=== PATIENT | male | born 1935 | race Caucasian/White ===

== ENCOUNTER 2017-01-26 08:31 | Emergency (ER) | payer MEDICARE ==
[~2017-01-26] VITALS: Ht 170.1 cm; Wt 88.5 kg
--- NOTE | ~2017-01-26 | EKG ---
[place], [place] ELECTROCARDIOGRAM REPORT NAME: PRESTON TOLBERT UNIT #: [id number] ROOM: DOCTOR: ORVILLE CORNELL MD BIRTHDATE: [birth year] DOS: 01/26/2017 TIME: 0902 hours. FINDINGS: 1. Sinus bradycardia at 52. 2. First degree AV block. 3. Nonspecific interventricular conduction defect. 4. Nonspecific T-wave flattening. 5. Abnormal electrocardiogram. ORVILLE CORNELL MD CM:EKGRPT:ELECTROCARDIOGRAM REPORT [id number] ORVILLE CORNELL MD
[2017-01-26 09:41] LABS: BASO # 0.1 10*3/uL (0.0-0.1); BASO % 0.8 % (0.0-1.0); EOS # 0.3 10*3/uL (0.0-0.4); EOS % 2.7 % (1.0-4.0); HEMOGLOBIN 12.6 g/dl (14.0-18.0); LYMPH # 1.1 10*3/uL (1.3-4.4); LYMPH % 11.8 % (27.0-41.0); MEAN CELL VOLUME 90.5 fl (80.0-94.0); MEAN CORPUSCULAR HGB 28.5 pg (27.0-31.0); MEAN CORPUSCULAR HGB CONC 31.5 g/dl (33.0-37.0); MEAN PLATELET VOLUME 9.2 fl (9.6-12.3); MONO # 0.6 10*3/uL (0.1-1.0); MONO % 6.6 % (3.0-9.0); NEUT # 7.2 10*3/uL (2.3-7.9); NEUT % 77.8 % (47.0-73.0); PLATELET COUNT AUTOMATED 224 10*3/uL (130-400); RED BLOOD COUNT 4.42 10*6/uL (4.50-5.90); WHITE BLOOD COUNT 9.2 10*3/uL (4.8-10.8)
[2017-01-26 09:59] LABS: BUN 28 mg/dl (7-24); CARBON DIOXIDE 28 mmol/L (21-32); CHLORIDE 106 mmol/L (98-107); EST GLOM FILT AFRICAN AMERICAN 31 ml/min; GLUCOSE 116 mg/dL (65-99); POTASSIUM 4.4 mmol/L (3.5-5.1); SODIUM 143 mmol/L (136-145); TROPONIN I < 0.015 ng/ml (<0.045)
[2017-01-26] MEDS ORDERED: DELTASONE20 M1 PO (13:24)
== END 2017-01-26 14:20 | disposition left against medical advice (07) ==
LOC: ED 08:31
PROVIDERS: Emergency Medicine
DX: J44.1 Chronic obstructive pulmonary disease with (acute) exacerbation (principal)

== ENCOUNTER 2017-10-31 09:06 | Inpatient (IN) | payer OTHER ==
[2017-10-31] VITALS (7 sets, daily range): BP systolic 112–126; BP diastolic 46–70
[~2017-10-31] VITALS: Ht 170.2 cm; Wt 77.6 kg
--- NOTE | ~2017-10-31 | EKG ---
[place], [place] ELECTROCARDIOGRAM REPORT NAME: PRESTON TOLBERT UNIT #: [id number] ROOM: 403 DOCTOR: ANUSHKA GAN [facility] BIRTHDATE: [birth year] DOS: 10/31/2017 TRACING TIME: 932. CONCLUSION: 1. Sinus rhythm. 2. Second degree AV block, 2 to 1 is considered, and heart rate is only 44 and could be a source of arrhythmia including the intrinsic conduction. 3. Left axis. 4. Nonspecific ST changes. TERRI REVELES MD CM:EKGRPT:ELECTROCARDIOGRAM REPORT [id number] TERRI REVELES MD [facility]
--- NOTE | ~2017-10-31 | CON ---
[employer], [place] REPORT OF CONSULTATION NAME: PRESTON TOLBERT UNIT #: [id number] ROOM: 403 [facility] [birth year] DOS: 11/01/2017 CARDIOLOGY CONSULTATION HISTORY OF PRESENT ILLNESS: The patient came in with history of cough and some dyspnea. Denies for any syncope or presyncope and somewhat tiredness and fatigue. This is going on for the last 3 weeks and found to be in second-degree AV block Mobitz II with 2:1 with bradycardia and the patient on metoprolol, has been stopped more than 24 hours now. We will repeat the EKG and monitoring. If second-degree AV block still persist, consideration may be given for permanent pacemaker to optimize the heart rate and today is no further progression of the second-degree AV block, third degree AV block or complete heart block. The patient came to the Emergency Room and the patient had apparently abdominal aortic aneurysm repaired in the past. No history of heart attack. The patient has a chronic obstructive airway disease and history of hypertension and history of kidney cancer and dyslipidemia. The patient also has apparently thoracic aneurysm, but Anesthesia did not want to undertake the patient for surgery because of the increased multisystem disease and decompensation that is as per the patient. SOCIAL HISTORY: No alcohol use. No illicit drugs. History of smoking in the past and he quit smoking several years ago, i.e. 1994 last time he smoked. FAMILY HISTORY: Mother and father no significant family history. ALLERGIES: No known allergies. PHYSICAL EXAMINATION: VITAL SIGNS: Heart rate is about 50 now. GENERAL: Skin is warm, not diaphoretic. NECK: No jugular venous distension. Neck is supple. HEENT: The patient is hard of hearing. LUNGS: Decreased breath sounds. HEART: S1 and S2 regular. No gallop. ABDOMEN: Soft. SKIN: Warm and dry. LABORATORY DATA: Hemoglobin 12.5. WBC count is normal. Heart rate went down mid-yesterday is about 40s, now resolved and since we stopped the metoprolol, rate is about 50-60. We will do EKG and monitor followup. He still has a second-degree AV block Mobitz II, consideration should be given for pacemaker, otherwise conservative management and not to give the beta blocking agent and continue with , but if second-degree with Mobitz II, consider pacemaker to reduce the risk of further progression. IMPRESSION: Underlying second-degree AV with Mobitz II and make sure it is not drug related. PLAN: Continue to monitor the patient. [employer], [place] REPORT OF CONSULTATION NAME: PRESTON TOLBERT UNIT #: [id number] ROOM: [facility] DOCTOR: ANUSHKA GAN [facility] BIRTHDATE: [birth year] TERRI REVELES MD CM:CONSTR:REPORT OF CONSULTATION 0703 11/01/17 0941 interface JAMSHID BYRNES DO
--- NOTE | ~2017-10-31 | EKG ---
[place], [place] ELECTROCARDIOGRAM REPORT NAME: PRESTON TOLBERT UNIT #: [id number] ROOM: [facility] DOCTOR: ANUSHKA GAN [facility] BIRTHDATE: [birth year] DOS: 11/01/2017 TRACING TIME: 0700. CONCLUSION: 1. Sinus rhythm. 2. First degree AV block. 3. Nonspecific ST changes. TERRI REVELES MD CM:EKGRPT:ELECTROCARDIOGRAM REPORT [id number] TERRI REVELES MD [facility]
[~2017-10-31 09:06] MED LIST: DELTASONE20 M1 PO
[2017-10-31 09:40] LABS: BASO # 0.1 10*3/uL (0.0-0.1); BASO % 0.7 % (0.0-1.0); EOS # 0.2 10*3/uL (0.0-0.4); EOS % 2.3 % (1.0-4.0); HEMATOCRIT 39.7 % (42.0-52.0); HEMOGLOBIN 12.5 g/dl (14.0-18.0); LYMPH # 1.2 10*3/uL (1.3-4.4); LYMPH % 11.5 % (27.0-41.0); MEAN CELL VOLUME 89.8 fl (80.0-94.0); MEAN CORPUSCULAR HGB 28.3 pg (27.0-31.0); MEAN CORPUSCULAR HGB CONC 31.5 g/dl (33.0-37.0); MEAN PLATELET VOLUME 9.2 fl (9.6-12.3); MONO # 0.5 10*3/uL (0.1-1.0); MONO % 4.9 % (3.0-9.0); NEUT # 8.1 10*3/uL (2.3-7.9); NEUT % 80.3 % (47.0-73.0); PLATELET COUNT AUTOMATED 235 10*3/uL (130-400); RED BLOOD COUNT 4.42 10*6/uL (4.50-5.90); RED CELL DISTRI WIDTH 14.3 % (0-14.5); WHITE BLOOD COUNT 10.1 10*3/uL (4.8-10.8)
[2017-10-31 09:55] LABS: CREATININE 3.12 mg/dL (0.70-1.30); POTASSIUM 3.2 mmol/L (3.5-5.1); TROPONIN I 0.03 ng/ml (<0.045)
[2017-10-31 10:01] LABS: THYROID STIM HORMONE (HS) 9.19 uIU/ml (0.358-4.75)
[2017-10-31] MEDS ORDERED: LOPRESSOR50 M1 PO (12:43)
[2017-10-31] MEDS ORDERED: ZESTRIL,PRINIVIL5 MG PO (12:45)
[2017-10-31] MEDS ORDERED: PROCARDIA XL60 MG PO (12:46)
[2017-10-31] MEDS ORDERED: PROSCAR5 M1 PO (12:49)
[2017-10-31] MEDS ORDERED: LIPITOR40 MG PO (12:50)
[2017-10-31] MEDS ORDERED: OMEPRAZOLE20 M2 PO (12:53)
[2017-11-01] VITALS: BP 142/63
[2017-11-01 07:00] LABS: BASO % 0.6 % (0.0-1.0); EOS # 0.2 10*3/uL (0.0-0.4); EOS % 2.8 % (1.0-4.0); HEMATOCRIT 33.7 % (42.0-52.0); LYMPH # 1.3 10*3/uL (1.3-4.4); MEAN CELL VOLUME 89.4 fl (80.0-94.0); MEAN CORPUSCULAR HGB 29.2 pg (27.0-31.0); MEAN CORPUSCULAR HGB CONC 32.6 g/dl (33.0-37.0); MEAN PLATELET VOLUME 9.7 fl (9.6-12.3); MONO # 0.6 10*3/uL (0.1-1.0); NEUT % 70.3 % (47.0-73.0); PLATELET COUNT AUTOMATED 165 10*3/uL (130-400); RED BLOOD COUNT 3.77 10*6/uL (4.50-5.90); RED CELL DISTRI WIDTH 14.5 % (0-14.5); WHITE BLOOD COUNT 7.1 10*3/uL (4.8-10.8)
[2017-11-01 07:34] LABS: ALBUMIN 2.7 gm/dl (3.1-4.5); CREATININE 2.91 mg/dL (0.70-1.30); FREE T4 1.21 ng/dl (0.76-1.46); PHOSPHOROUS 3.7 mg/dL (2.5-4.9); POTASSIUM 3.5 mmol/L (3.5-5.1); TOTAL PROTEIN 5.9 gm/dL (6.4-8.2)
[2017-11-01 07:39] LABS: ACT PARTIAL THROMBO TIME 27.5 SECONDS (20.8-31.5)
[2017-11-01 07:57] LABS: VITAMIN D, 25-HYDROXY 14.9 ng/mL (30-100)
[2017-11-01 08:00] VITALS: BP 155/66
[2017-11-01 12:00] VITALS: BP 173/83
[2017-11-01] MEDS ORDERED: ZESTORETIC 20-1 EACH PO (12:07)
[2017-11-01] MEDS ORDERED: SPIRIVA18 MCG PO (12:08)
[2017-11-01] MEDS ORDERED: Ventolin 02.5 MG/3 M INH (12:09)
[2017-11-01] MEDS ORDERED: PROVENTIL HFA6.7 GM INH (12:11)
[2017-11-01] MEDS ORDERED: OCUVITE WITH L1 EACH PO (12:13)
[2017-11-01] MEDS ORDERED: ALLERGY RELIE15.8 ML NAS (12:15)
[2017-11-01] MEDS ORDERED: NIFEDIPINE ER30 M1 PO (13:46)
[2017-11-01] MEDS ORDERED: VITAMIN D31000 UNI1 PO (13:46)
[2017-11-01] MEDS ORDERED: TESSALON PERLE100 MG PO (14:41)
== END 2017-11-01 14:55 | disposition home or self-care (01) | DRG 308 ==
LOC: ED 09:06 → EDHOLD 11:31 → 4E 11:31
PROVIDERS: Emergency Medicine; Student in an Organized Health Care Education/Training Program
DX: I44.1 Atrioventricular block, second degree (principal); N17.0 Acute kidney failure with tubular necrosis; N18.4 Chronic kidney disease, stage 4 (severe); E87.6 Hypokalemia; J44.9 Chronic obstructive pulmonary disease, unspecified; R73.9 Hyperglycemia, unspecified; E78.5 Hyperlipidemia, unspecified; I12.9 Hypertensive chronic kidney disease with stage 1 through stage 4 chronic kidney disease, or unspecified chronic kidney disease; I71.6 Thoracoabdominal aortic aneurysm, without rupture; D64.9 Anemia, unspecified; D72.9 Disorder of white blood cells, unspecified; D72.810 Lymphocytopenia; E55.9 Vitamin D deficiency, unspecified; Z87.891 Personal history of nicotine dependence; Z85.528 Personal history of other malignant neoplasm of kidney; Z90.49 Acquired absence of other specified parts of digestive tract; Z98.49 Cataract extraction status, unspecified eye; Z90.5 Acquired absence of kidney; Z79.899 Other long term (current) drug therapy

== ENCOUNTER 2018-01-20 16:04 | Emergency (ER) | payer OTHER ==
[~2018-01-20] VITALS: Ht 170.1 cm; Wt 77.1 kg
--- NOTE | ~2018-01-20 | EKG ---
[place], [place] ELECTROCARDIOGRAM REPORT NAME: PRESTON TOLBERT UNIT #: [id number] ROOM: DOCTOR: ANUSHKA GAN [facility] BIRTHDATE: [birth year] DOS: 01/20/2018 TIME: 1618 hours. CONCLUSION: 1. Sinus rhythm. 2. First degree AV block. 3. Nonspecific ST changes. TERRI REVELES MD CM:EKGRPT:ELECTROCARDIOGRAM REPORT 0750 [id number] TERRI REVELES MD [facility]
[2018-01-20 16:05] VITALS: BP 162/89
[2018-01-20 16:45] LABS: BASO # 0.1 10*3/uL (0.0-0.1); BASO % 0.9 % (0.0-1.0); EOS # 0.2 10*3/uL (0.0-0.4); EOS % 2.9 % (1.0-4.0); HEMATOCRIT 35.1 % (42.0-52.0); LYMPH # 0.9 10*3/uL (1.3-4.4); LYMPH % 14.9 % (27.0-41.0); MEAN CELL VOLUME 93.9 fl (80.0-94.0); MEAN CORPUSCULAR HGB 29.4 pg (27.0-31.0); MEAN CORPUSCULAR HGB CONC 31.3 g/dl (33.0-37.0); MEAN PLATELET VOLUME 9.6 fl (9.6-12.3); MONO # 0.4 10*3/uL (0.1-1.0); MONO % 6.6 % (3.0-9.0); NEUT # 4.3 10*3/uL (2.3-7.9); NEUT % 74.5 % (47.0-73.0); PLATELET COUNT AUTOMATED 179 10*3/uL (130-400); RED BLOOD COUNT 3.74 10*6/uL (4.50-5.90); RED CELL DISTRI WIDTH 14.4 % (0-14.5); WHITE BLOOD COUNT 5.8 10*3/uL (4.8-10.8)
[2018-01-20 17:00] LABS: CREATININE 3.03 mg/dL (0.70-1.30); POTASSIUM 5.5 mmol/L (3.5-5.1)
[2018-01-20 18:16] VITALS: BP 151/76
== END 2018-01-20 18:15 | disposition home or self-care (01) ==
LOC: ED 16:04 → EDHOLD 17:13 → 5E 17:28 → EDHOLD 17:28 → ED 18:15
PROVIDERS: Emergency Medicine
DX: E87.5 Hyperkalemia (principal); I12.9 Hypertensive chronic kidney disease with stage 1 through stage 4 chronic kidney disease, or unspecified chronic kidney disease; N18.4 Chronic kidney disease, stage 4 (severe); E78.5 Hyperlipidemia, unspecified; J44.9 Chronic obstructive pulmonary disease, unspecified; Z90.49 Acquired absence of other specified parts of digestive tract; Z98.890 Other specified postprocedural states; Z87.891 Personal history of nicotine dependence; Z79.899 Other long term (current) drug therapy

== ENCOUNTER → 2018-01-20 | Outpatient (CLI) | payer OTHER ==
[~2018-01-20] MED LIST changes: +ALLERGY RELIE15.8 ML NAS; +LIPITOR40 MG PO; +LOPRESSOR50 M1 PO; +NIFEDIPINE ER30 M1 PO; +OCUVITE WITH L1 EACH PO; +OMEPRAZOLE20 M2 PO; +PROCARDIA XL60 MG PO; +PROSCAR5 M1 PO; +PROVENTIL HFA6.7 GM INH; +SPIRIVA18 MCG PO; +TESSALON PERLE100 MG PO; +VITAMIN D31000 UNI1 PO; +Ventolin 02.5 MG/3 M INH; +ZESTORETIC 20-1 EACH PO; +ZESTRIL,PRINIVIL5 MG PO
[2018-01-20 14:23] LABS: ALBUMIN 3.3 gm/dl (3.1-4.5); CREATININE 3.03 mg/dL (0.70-1.30); POTASSIUM 5.8 mmol/L (3.5-5.1); TOTAL PROTEIN 7.3 gm/dL (6.4-8.2)
== END | disposition home or self-care (01) ==
LOC: LAB 13:34
PROVIDERS: Nurse Practitioner Family
DX: E87.5 Hyperkalemia (principal)

== ENCOUNTER → 2018-01-23 | Outpatient (CLI) | payer OTHER ==
[2018-01-23 10:48] LABS: CREATININE 2.91 mg/dL (0.70-1.30); POTASSIUM 5.9 mmol/L (3.5-5.1)
== END | disposition home or self-care (01) ==
LOC: LAB 09:28
PROVIDERS: Emergency Medicine
DX: E87.5 Hyperkalemia (principal)

== ENCOUNTER 2018-01-26 22:11 | Emergency (ER) | payer OTHER ==
[~2018-01-26] VITALS: Ht 167.6 cm; Wt 86.2 kg
[2018-01-26 23:18] LABS: CREATININE 3.06 mg/dL (0.70-1.30); POTASSIUM 5.1 mmol/L (3.5-5.1)
== END 2018-01-27 00:25 | disposition home or self-care (01) ==
LOC: ED 22:11
PROVIDERS: Emergency Medicine Emergency Medical Services
DX: E87.5 Hyperkalemia (principal); I12.9 Hypertensive chronic kidney disease with stage 1 through stage 4 chronic kidney disease, or unspecified chronic kidney disease; N18.4 Chronic kidney disease, stage 4 (severe); E78.5 Hyperlipidemia, unspecified; Z85.528 Personal history of other malignant neoplasm of kidney; Z98.890 Other specified postprocedural states; Z90.49 Acquired absence of other specified parts of digestive tract; Z87.891 Personal history of nicotine dependence; Z79.899 Other long term (current) drug therapy

== ENCOUNTER 2018-02-28 07:14 | Inpatient (IN) | payer OTHER ==
[~2018-02-28] VITALS: Ht 170.1 cm; Wt 81.8 kg
[2018-02-28 07:14] VITALS: BP 151/73
[2018-02-28 07:59] LABS: BASO # 0.1 10*3/uL (0.0-0.1); BASO % 0.8 % (0.0-1.0); EOS # 0.2 10*3/uL (0.0-0.4); EOS % 3.5 % (1.0-4.0); HEMATOCRIT 33.3 % (42.0-52.0); HEMOGLOBIN 10.6 g/dl (14.0-18.0); LYMPH % 15.7 % (27.0-41.0); MEAN CELL VOLUME 93.3 fl (80.0-94.0); MEAN CORPUSCULAR HGB 29.7 pg (27.0-31.0); MEAN CORPUSCULAR HGB CONC 31.8 g/dl (33.0-37.0); MEAN PLATELET VOLUME 9.2 fl (9.6-12.3); MONO # 0.4 10*3/uL (0.1-1.0); MONO % 6.6 % (3.0-9.0); NEUT # 4.9 10*3/uL (2.3-7.9); NEUT % 73.2 % (47.0-73.0); PLATELET COUNT AUTOMATED 221 10*3/uL (130-400); RED BLOOD COUNT 3.57 10*6/uL (4.50-5.90); RED CELL DISTRI WIDTH 13.6 % (0-14.5); WHITE BLOOD COUNT 6.6 10*3/uL (4.8-10.8)
[2018-02-28 08:08] LABS: ACT PARTIAL THROMBO TIME 27.2 SECONDS (20.8-31.5)
[2018-02-28 08:16] LABS: ALBUMIN 3.2 gm/dl (3.1-4.5); CREATININE 2.72 mg/dL (0.70-1.30); POTASSIUM 4.1 mmol/L (3.5-5.1); TOTAL PROTEIN 7.1 gm/dL (6.4-8.2); TROPONIN I 0.02 ng/ml (<0.045)
[2018-02-28 08:57] VITALS: BP 138/70
[2018-02-28 10:20] VITALS: BP 164/80
[2018-02-28] MEDS ORDERED: FINASTERIDE5 M1 PO (12:33)
[2018-02-28] MEDS ORDERED: NIFEDIPINE ER60 M1 PO (13:52)
[2018-02-28 16:00] VITALS: BP 159/86
[2018-02-28 20:00] VITALS: BP 152/71
[2018-03-01] VITALS: BP 148/72
[2018-03-01 06:02] LABS: CREATININE 2.97 mg/dL (0.70-1.30); PHOSPHOROUS 3.7 mg/dL (2.5-4.9); POTASSIUM 4.3 mmol/L (3.5-5.1); TOTAL PROTEIN 6.8 gm/dL (6.4-8.2)
[2018-03-01 06:06] LABS: FREE T4 1.14 ng/dl (0.76-1.46); THYROID STIM HORMONE (HS) 2.1 uIU/ml (0.358-4.75)
[2018-03-01 06:13] LABS: HEMATOCRIT 31.4 % (42.0-52.0); HEMOGLOBIN 9.9 g/dl (14.0-18.0); MEAN CELL VOLUME 92.9 fl (80.0-94.0); MEAN CORPUSCULAR HGB 29.3 pg (27.0-31.0); MEAN CORPUSCULAR HGB CONC 31.5 g/dl (33.0-37.0); MEAN PLATELET VOLUME 9.5 fl (9.6-12.3); PLATELET COUNT AUTOMATED 216 10*3/uL (130-400); RED BLOOD COUNT 3.38 10*6/uL (4.50-5.90); RED CELL DISTRI WIDTH 13.6 % (0-14.5); WHITE BLOOD COUNT 4.1 10*3/uL (4.8-10.8)
[2018-03-01 07:05] LABS: OVALOCYTES FEW; PLATELET SUFFICIENCY NORMAL (NORMAL); POLYCHROMASIA SLIGHT; TOTAL CELLS COUNTED 100 #CELLS
[2018-03-01 07:12] LABS: VITAMIN D, 25-HYDROXY 26.4 ng/mL (30-100)
[2018-03-01 08:00] VITALS: BP 150/72
[2018-03-01 12:00] VITALS: BP 150/70
[2018-03-01 16:00] VITALS: BP 151/77
[2018-03-01 20:00] VITALS: BP 145/78
[2018-03-02 00:15] VITALS: BP 125/53
[2018-03-02 06:06] LABS: RETICULOCYTE % 1.61 % (0.50-2.50)
[2018-03-02 06:27] LABS: ALBUMIN 2.9 gm/dl (3.1-4.5); CREATININE 3.3 mg/dL (0.70-1.30); PHOSPHOROUS 4.9 mg/dL (2.5-4.9); POTASSIUM 4.5 mmol/L (3.5-5.1)
[2018-03-02 08:00] VITALS: BP 119/69
[2018-03-02 08:24] LABS: FERRITIN 399.1 ng/mL (22.0-322.0)
[2018-03-02 12:00] VITALS: BP 153/65
[2018-03-02 13:59] LABS: BILIRUBIN NEGATIVE (NEGATIVE); BLOOD TRACE-LYSED (NEGATIVE); CLARITY SL CLOUDY (CLEAR); COLOR YELLOW (YELLOW); GLUCOSE NEGATIVE (NEGATIVE); KETONE NEGATIVE (NEGATIVE); LEUKO ESTERASE NEGATIVE (NEGATIVE); NITRITE NEGATIVE (NEGATIVE); SPECIFIC GRAVITY >= 1.030 (1.005-1.030); UROBILINOGEN 0.2 E.U./dl (0.2-1.0)
[2018-03-02 14:08] LABS: BACTERIA 3+; HYALINE CAST 0-2
[2018-03-02 14:09] LABS: MUCOUS TRACE
[2018-03-02 16:00] VITALS: BP 150/79
[2018-03-02 20:00] VITALS: BP 151/79
[2018-03-03] VITALS: BP 125/46
[2018-03-03 07:00] LABS: POTASSIUM 4.1 mmol/L (3.5-5.1)
[2018-03-03 07:02] LABS: CREATININE 3.18 mg/dL (0.70-1.30); PHOSPHOROUS 4.2 mg/dL (2.5-4.9)
[2018-03-03 08:00] VITALS: BP 137/72
[2018-03-03 12:00] VITALS: BP 146/80
[2018-03-03] MEDS ORDERED: PREDNISONE10 MG PO (14:02)
[2018-03-03] MEDS ORDERED: ZITHROMAX500 MG PO (14:02)
== END 2018-03-03 15:21 | disposition home or self-care (01) | DRG 193 ==
LOC: ED 07:14 → 4E 09:52
PROVIDERS: Emergency Medicine; Internal Medicine; Registered Nurse
DX: J18.9 Pneumonia, unspecified organism (principal); J96.01 Acute respiratory failure with hypoxia; N18.4 Chronic kidney disease, stage 4 (severe); J44.1 Chronic obstructive pulmonary disease with (acute) exacerbation; J44.0 Chronic obstructive pulmonary disease with (acute) lower respiratory infection; E78.5 Hyperlipidemia, unspecified; D64.9 Anemia, unspecified; D72.810 Lymphocytopenia; N40.0 Benign prostatic hyperplasia without lower urinary tract symptoms; E87.8 Other disorders of electrolyte and fluid balance, not elsewhere classified; I12.9 Hypertensive chronic kidney disease with stage 1 through stage 4 chronic kidney disease, or unspecified chronic kidney disease; Z90.5 Acquired absence of kidney; Z79.899 Other long term (current) drug therapy; Z85.528 Personal history of other malignant neoplasm of kidney; Z90.49 Acquired absence of other specified parts of digestive tract; Z98.49 Cataract extraction status, unspecified eye; Z87.891 Personal history of nicotine dependence; Z82.49 Family history of ischemic heart disease and other diseases of the circulatory system; Z80.9 Family history of malignant neoplasm, unspecified

== ENCOUNTER 2018-03-13 15:43 | Inpatient (IN) | payer OTHER ==
[~2018-03-13] VITALS: Ht 170.1 cm; Wt 77.5 kg
--- NOTE | ~2018-03-13 | ST ---
[place], [place] EXERCISE STRESS TEST REPORT NAME: PRESTON TOLBERT UNIT #: [id number] ROOM: 523 DOCTOR: ANUSHKA GAN [facility] BIRTHDATE: [birth year] DOS: 03/16/2018 LEXISCAN WITH CARDIOLITE The patient received Lexiscan 0.4 mg over 10 seconds. Heart rate is 90. No ischemic changes in the EKG. The patient has paroxysmal atrial fibrillation with rapid ventricular response and the periodic sinus rhythm. Isotope was injected and no complication noted and Lexiscan 0.4 mg injected prior to the Cardiolite injection. The patient tolerated the procedure well. No complication noted. Myocardial perfusion scan to follow. TERRI REVELES MD CM:STRESS:EXERCISE STRESS TEST REPORT 0717 0726 TERRI REVELES MD [facility]
--- NOTE | ~2018-03-13 | CON ---
[place], [place] REPORT OF CONSULTATION NAME: PRESTON TOLBERT UNIT #: [id number] ROOM: 523 DOCTOR: ANUSHKA GAN [facility] BIRTHDATE: [birth year] DOS: 03/15/2018 CARDIOLOGY CONSULTATION The patient is an 82-year-old male who came in with history of chronic respiratory failure and non-ST elevation myocardial infarction cannot be excluded with troponins elevated; however, the patient is also in renal failure and creatinine is more than 4 and I have been talking to him for the last several admissions to have the dialysis started, but refused and we are still talking at this time also. 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 The patient had history of partial nephrectomy for renal carcinoma. The patient has an abdominal aortic aneurysm repaired. Mechanical Manufacturing Technician has been following the patient. The patient apparently has progressive increasing peripheral edema and peripheral neuropathy. No history of alcohol intake or illicit drugs. TERRI REVELES MD CM:CONSTR:REPORT OF CONSULTATION 1239 03/27/18 0828 interface
[~2018-03-13 15:43] MED LIST changes: +FINASTERIDE5 M1 PO; +NIFEDIPINE ER60 M1 PO; +PREDNISONE10 MG PO; +ZITHROMAX500 MG PO
[2018-03-13 15:45] VITALS: BP 146/69
[2018-03-13 16:13] LABS: HEMATOCRIT 29.6 % (42.0-52.0); HEMOGLOBIN 9.6 g/dl (14.0-18.0); MEAN CELL VOLUME 92.5 fl (80.0-94.0); MEAN CORPUSCULAR HGB CONC 32.4 g/dl (33.0-37.0); MEAN PLATELET VOLUME 10.2 fl (9.6-12.3); PLATELET COUNT AUTOMATED 211 10*3/uL (130-400); RED CELL DISTRI WIDTH 14.4 % (0-14.5); WHITE BLOOD COUNT 14.7 10*3/uL (4.8-10.8)
[2018-03-13 16:22] LABS: ACT PARTIAL THROMBO TIME 22.8 SECONDS (20.8-31.5)
[2018-03-13 16:28] LABS: ALBUMIN 3.5 gm/dl (3.1-4.5); CREATININE 4.13 mg/dL (0.70-1.30); POTASSIUM 4.3 mmol/L (3.5-5.1); TOTAL PROTEIN 6.5 gm/dL (6.4-8.2)
[2018-03-13 16:37] LABS: TROPONIN I 0.174 ng/ml (<0.045)
[2018-03-13 16:39] LABS: BURR CELLS FEW; PLATELET SUFFICIENCY NORMAL (NORMAL); TOTAL CELLS COUNTED 100 #CELLS
[2018-03-13 17:05] VITALS: BP 135/59
[2018-03-13 20:00] VITALS: BP 135/60
[2018-03-14] VITALS: BP 119/82
[2018-03-14 05:19] LABS: BILIRUBIN NEGATIVE (NEGATIVE); BLOOD TRACE-INTACT (NEGATIVE); CLARITY CLEAR (CLEAR); COLOR YELLOW (YELLOW); GLUCOSE NEGATIVE (NEGATIVE); KETONE NEGATIVE (NEGATIVE); LEUKO ESTERASE NEGATIVE (NEGATIVE); NITRITE NEGATIVE (NEGATIVE); UROBILINOGEN 0.2 E.U./dl (0.2-1.0)
[2018-03-14 05:30] LABS: URINE CREATININE RANDOM 75.5 mg/dL
[2018-03-14 06:39] LABS: HEMATOCRIT 26.4 % (42.0-52.0); HEMOGLOBIN 8.4 g/dl (14.0-18.0); MEAN CELL VOLUME 92.6 fl (80.0-94.0); MEAN CORPUSCULAR HGB 29.5 pg (27.0-31.0); MEAN CORPUSCULAR HGB CONC 31.8 g/dl (33.0-37.0); MEAN PLATELET VOLUME 10.3 fl (9.6-12.3); PLATELET COUNT AUTOMATED 162 10*3/uL (130-400); RED BLOOD COUNT 2.85 10*6/uL (4.50-5.90); RED CELL DISTRI WIDTH 14.3 % (0-14.5); WHITE BLOOD COUNT 9.2 10*3/uL (4.8-10.8)
[2018-03-14 07:03] LABS: TOTAL CELLS COUNTED 100 #CELLS
[2018-03-14 07:04] LABS: ACANTHOCYTES FEW; BURR CELLS FEW; PLATELET SUFFICIENCY NORMAL (NORMAL); POLYCHROMASIA SLIGHT
[2018-03-14 07:07] LABS: ALBUMIN 2.9 gm/dl (3.1-4.5); CREATININE 4.04 mg/dL (0.70-1.30); PHOSPHOROUS 3.9 mg/dL (2.5-4.9); TOTAL PROTEIN 5.7 gm/dL (6.4-8.2)
[2018-03-14 08:00] VITALS: BP 146/81
[2018-03-14 12:00] VITALS: BP 156/72
[2018-03-14 16:00] VITALS: BP 132/68
[2018-03-14 20:00] VITALS: BP 143/74
[2018-03-15] VITALS: BP 139/63
[2018-03-15 07:16] LABS: ALBUMIN 2.9 gm/dl (3.1-4.5); CREATININE 4.11 mg/dL (0.70-1.30)
[2018-03-15 07:49] LABS: EOS # 0.3 10*3/uL (0.0-0.4); EOS % 3.1 % (1.0-4.0); HEMATOCRIT 26.5 % (42.0-52.0); HEMOGLOBIN 8.4 g/dl (14.0-18.0); LYMPH # 0.6 10*3/uL (1.3-4.4); MEAN CELL VOLUME 93.3 fl (80.0-94.0); MEAN CORPUSCULAR HGB 29.6 pg (27.0-31.0); MEAN CORPUSCULAR HGB CONC 31.7 g/dl (33.0-37.0); MEAN PLATELET VOLUME 10.5 fl (9.6-12.3); MONO # 0.6 10*3/uL (0.1-1.0); MONO % 5.6 % (3.0-9.0); NEUT # 8.7 10*3/uL (2.3-7.9); NEUT % 84.9 % (47.0-73.0); PLATELET COUNT AUTOMATED 172 10*3/uL (130-400); RED BLOOD COUNT 2.84 10*6/uL (4.50-5.90); RED CELL DISTRI WIDTH 14.6 % (0-14.5); WHITE BLOOD COUNT 10.3 10*3/uL (4.8-10.8)
[2018-03-15 08:00] VITALS: BP 146/70
[2018-03-15 12:00] VITALS: BP 150/72
[2018-03-15 16:00] VITALS: BP 153/79
[2018-03-15 20:00] VITALS: BP 150/81
[2018-03-16] VITALS: BP 143/75
[2018-03-16 08:00] VITALS: BP 144/74
[2018-03-16 10:01] LABS: CREATININE 3.94 mg/dL (0.70-1.30); POTASSIUM 3.9 mmol/L (3.5-5.1)
[2018-03-16 12:00] VITALS: BP 140/69
[2018-03-16] MEDS ORDERED: BUMEX2.5 MG/10 IV (12:31)
[2018-03-16] MEDS ORDERED: ROPINIROLE HY0.25 MG PO (12:31)
[2018-03-16] MEDS ORDERED: CALCIUM ACETAT667 MG PO (12:31)
[2018-03-16] MEDS ORDERED: DILTIAZEM 24HR120 MG PO (12:31)
[2018-03-16] MEDS ORDERED: VITAMIN D-32000 UNIT PO (12:31)
[2018-03-16 16:00] VITALS: BP 134/67
[2018-03-16 20:00] VITALS: BP 155/73
[2018-03-17] VITALS: BP 142/62
[2018-03-17 07:11] LABS: BASO % 0.1 % (0.0-1.0); EOS # 0.5 10*3/uL (0.0-0.4); EOS % 4.9 % (1.0-4.0); HEMATOCRIT 25.2 % (42.0-52.0); HEMOGLOBIN 8.1 g/dl (14.0-18.0); LYMPH # 0.4 10*3/uL (1.3-4.4); LYMPH % 4.1 % (27.0-41.0); MEAN CORPUSCULAR HGB 30.2 pg (27.0-31.0); MEAN CORPUSCULAR HGB CONC 32.1 g/dl (33.0-37.0); MEAN PLATELET VOLUME 10.7 fl (9.6-12.3); MONO # 0.6 10*3/uL (0.1-1.0); MONO % 5.5 % (3.0-9.0); NEUT # 9.2 10*3/uL (2.3-7.9); NEUT % 84.9 % (47.0-73.0); PLATELET COUNT AUTOMATED 129 10*3/uL (130-400); RED BLOOD COUNT 2.68 10*6/uL (4.50-5.90); RED CELL DISTRI WIDTH 14.8 % (0-14.5); WHITE BLOOD COUNT 10.9 10*3/uL (4.8-10.8)
[2018-03-17 07:55] LABS: ALBUMIN 2.6 gm/dl (3.1-4.5); CREATININE 4.16 mg/dL (0.70-1.30); PHOSPHOROUS 4.9 mg/dL (2.5-4.9); POTASSIUM 3.7 mmol/L (3.5-5.1)
[2018-03-17 08:00] VITALS: BP 134/54
== END 2018-03-17 11:40 | disposition short-term general hospital (02) | DRG 871 ==
LOC: ED 15:43 → 5E 16:23 → EDHOLD 16:23 → 5E 16:44
PROVIDERS: Emergency Medicine; Internal Medicine; Internal Medicine Nephrology; Registered Nurse
PROC: 4A02XM4 Measurement of Cardiac Total Activity, External Approach (ICD-10-PCS; principal; 2018-03-16)
DX: A41.9 Sepsis, unspecified organism (principal); I21.4 Non-ST elevation (NSTEMI) myocardial infarction; J96.21 Acute and chronic respiratory failure with hypoxia; E43 Unspecified severe protein-calorie malnutrition; J18.9 Pneumonia, unspecified organism; D68.59 Other primary thrombophilia; E83.39 Other disorders of phosphorus metabolism; I48.0 Paroxysmal atrial fibrillation; D69.6 Thrombocytopenia, unspecified; I48.2 Chronic atrial fibrillation; N18.4 Chronic kidney disease, stage 4 (severe); N17.9 Acute kidney failure, unspecified; J44.0 Chronic obstructive pulmonary disease with (acute) lower respiratory infection; D64.9 Anemia, unspecified; I71.4 Abdominal aortic aneurysm, without rupture; R94.39 Abnormal result of other cardiovascular function study; H91.90 Unspecified hearing loss, unspecified ear; I71.6 Thoracoabdominal aortic aneurysm, without rupture; N40.0 Benign prostatic hyperplasia without lower urinary tract symptoms; E78.5 Hyperlipidemia, unspecified; I12.9 Hypertensive chronic kidney disease with stage 1 through stage 4 chronic kidney disease, or unspecified chronic kidney disease; Z99.81 Dependence on supplemental oxygen; Z79.899 Other long term (current) drug therapy; Z85.528 Personal history of other malignant neoplasm of kidney; Z90.49 Acquired absence of other specified parts of digestive tract; Z98.49 Cataract extraction status, unspecified eye; Z87.891 Personal history of nicotine dependence; Z82.49 Family history of ischemic heart disease and other diseases of the circulatory system; Z80.9 Family history of malignant neoplasm, unspecified; Z87.01 Personal history of pneumonia (recurrent); Z68.29 Body mass index [BMI] 29.0-29.9, adult

== ENCOUNTER → 2018-05-08 | Outpatient (CLI) | payer OTHER ==
[~2018-05-08] MED LIST changes: +BUMEX2.5 MG/10 IV; +CALCIUM ACETAT667 MG PO; +DILTIAZEM 24HR120 MG PO; +ROPINIROLE HY0.25 MG PO; +VITAMIN D-32000 UNIT PO
== END | disposition home or self-care (01) ==
LOC: US 15:28
DX: I72.1 Aneurysm of artery of upper extremity (principal)

== ENCOUNTER 2018-07-27 13:31 | Inpatient (IN) | payer OTHER ==
[~2018-07-27] VITALS: Ht 170.1 cm; Wt 74.9 kg
--- NOTE | ~2018-07-27 | EKG ---
[place], [place] ELECTROCARDIOGRAM REPORT NAME: PRESTON TOLBERT UNIT #: [id number] ROOM: 415 DOCTOR: SHASHI DRAFT REPORT BIRTHDATE: [birth year] [facility] Test Date: 2018-07-27 Test Time: 13:52:08 Pat Name: PRESTON TOLBERT Department: Room: [facility] Gender: M Crt: Robina Reardon : 1935 Requested By: BALJINDER AMBROSIO Order Number: [id number] Reading MD: Koko Bronson MD Measurements Intervals Gilman Rate: 63 P: VA: QRS: 3 QRSD: 108 T: 22 QT: 484 QTc: 496 Interpretive Statements Atrial fibrillation Posterior infarct, old Baseline wander in lead(s) II,III,aVL,aVF Electronically Signed On 07-28-2018 12:10:37 PDT by Koko Bronson MD CM:EKGRPT:ELECTROCARDIOGRAM REPORT [id number] 1210 BALJINDER STRAUSS DRAFT REPORT BALJINDER AMBROSIO DO
[2018-07-27 13:32] VITALS: BP 166/75
[2018-07-27 14:19] LABS: BASO # 0.1 10*3/uL (0.0-0.1); BASO % 0.7 % (0.0-1.0); EOS # 0.2 10*3/uL (0.0-0.4); EOS % 2.5 % (1.0-4.0); HEMATOCRIT 32.9 % (42.0-52.0); HEMOGLOBIN 10.3 g/dl (14.0-18.0); LYMPH # 0.8 10*3/uL (1.3-4.4); LYMPH % 11.2 % (27.0-41.0); MEAN CELL VOLUME 97.6 fl (80.0-94.0); MEAN CORPUSCULAR HGB 30.6 pg (27.0-31.0); MEAN CORPUSCULAR HGB CONC 31.3 g/dl (33.0-37.0); MEAN PLATELET VOLUME 9.9 fl (9.6-12.3); MONO # 0.5 10*3/uL (0.1-1.0); MONO % 7.5 % (3.0-9.0); NEUT # 5.1 10*3/uL (2.3-7.9); NEUT % 76.8 % (47.0-73.0); PLATELET COUNT AUTOMATED 161 10*3/uL (130-400); RED BLOOD COUNT 3.37 10*6/uL (4.50-5.90); RED CELL DISTRI WIDTH 13.9 % (0-14.5); WHITE BLOOD COUNT 6.7 10*3/uL (4.8-10.8)
[2018-07-27 14:21] LABS: ACT PARTIAL THROMBO TIME 25.5 SECONDS (20.8-31.5); INTERNATIONAL NORM RATIO 1.1 (2.0-3.5)
[2018-07-27 14:30] LABS: ALBUMIN 3.1 gm/dl (3.1-4.5); CREATININE 2.64 mg/dL (0.70-1.30); POTASSIUM 3.7 mmol/L (3.5-5.1); TOTAL PROTEIN 6.7 gm/dL (6.4-8.2); TROPONIN I 0.036 ng/ml (<0.045)
[2018-07-27] MEDS ORDERED: ASPIRIN ADULT L81 MG PO (15:52)
[2018-07-27] MEDS ORDERED: RENO CAPS SOFTGE1 MG PO (15:55)
[2018-07-27] MEDS ORDERED: DULCOLAX5 M1 PO (15:56)
[2018-07-27] MEDS ORDERED: BUMETANIDE1 MG PO (15:57)
[2018-07-27] MEDS ORDERED: PLAVIX75 M1 PO (15:58)
[2018-07-27] MEDS ORDERED: COREG6.25 MG PO (15:58)
[2018-07-27] MEDS ORDERED: FERROUS SULFAT324 M2 PO (15:59)
[2018-07-27] MEDS ORDERED: PEPCID20 MG PO (15:59)
[2018-07-27] MEDS ORDERED: Ipratropium Brom3 ML INH (16:01)
[2018-07-27] MEDS ORDERED: ONDANSETRON4 MG SL (16:02)
[2018-07-27] MEDS ORDERED: Transderm Nitr0.6 MG TD (16:02)
[2018-07-27] MEDS ORDERED: PANTOPRAZOLE SO20 MG PO (16:03)
[2018-07-27] MEDS ORDERED: LYRICA50 M1 PO (16:03)
[2018-07-27] MEDS ORDERED: RENVELA800 MG PO (16:04)
[2018-07-27] MEDS ORDERED: TRAMADOL HCL50 MG PO (16:05)
[2018-07-27 16:20] VITALS: BP 168/72
[2018-07-27 20:00] VITALS: BP 159/74
[2018-07-28] VITALS: BP 104/50
[2018-07-28 06:01] LABS: HEMATOCRIT 31.6 % (42.0-52.0); HEMOGLOBIN 9.9 g/dl (14.0-18.0); MEAN CELL VOLUME 96.3 fl (80.0-94.0); MEAN CORPUSCULAR HGB 30.2 pg (27.0-31.0); MEAN CORPUSCULAR HGB CONC 31.3 g/dl (33.0-37.0); MEAN PLATELET VOLUME 10.2 fl (9.6-12.3); PLATELET COUNT AUTOMATED 137 10*3/uL (130-400); RED BLOOD COUNT 3.28 10*6/uL (4.50-5.90); RED CELL DISTRI WIDTH 13.8 % (0-14.5); WHITE BLOOD COUNT 2.1 10*3/uL (4.8-10.8)
[2018-07-28 06:06] LABS: CREATININE 3.56 mg/dL (0.70-1.30); FREE T4 0.95 ng/dl (0.76-1.46); PHOSPHOROUS 3.6 mg/dL (2.5-4.9); POTASSIUM 3.8 mmol/L (3.5-5.1)
[2018-07-28 06:13] LABS: THYROID STIM HORMONE (HS) 1.98 uIU/ml (0.358-4.75)
[2018-07-28 07:17] LABS: PLATELET SUFFICIENCY NORMAL (NORMAL); TOTAL CELLS COUNTED 100 #CELLS
[2018-07-28 07:39] LABS: VITAMIN D, 25-HYDROXY 26.5 ng/mL (30-100)
[2018-07-28 08:00] VITALS: BP 136/60
[2018-07-28] MEDS ORDERED: HYDRALAZINE HYD50 MG PO (10:12)
[2018-07-28] MEDS ORDERED: RENA-VITE1 TAB PO (10:12)
[2018-07-28] MEDS ORDERED: NIFEDIPINE60 MG PO (10:22)
[2018-07-28] MEDS ORDERED: SPIRIVA -- 3018 MCG INH (10:23)
[2018-07-28] MEDS ORDERED: LEVAQUIN250 M1 PO (11:47)
[2018-07-28] MEDS ORDERED: PREDNISONE10 MG PO (11:47)
[2018-07-28 12:00] VITALS: BP 144/80
[2018-08-15] MEDS ORDERED: PROTONIX40 MG PO (13:14)
[2018-08-15] MEDS ORDERED: NEURONTIN100 MG PO (13:14)
== END 2018-07-28 15:22 | disposition home health service (06) | DRG 191 ==
LOC: ED 13:31 → 4E 15:45 → EDHOLD 15:45 → 4E 15:59
PROVIDERS: Emergency Medicine; Internal Medicine
DX: J44.1 Chronic obstructive pulmonary disease with (acute) exacerbation (principal); E44.0 Moderate protein-calorie malnutrition; N18.4 Chronic kidney disease, stage 4 (severe); R79.89 Other specified abnormal findings of blood chemistry; R79.82 Elevated C-reactive protein (CRP); I12.9 Hypertensive chronic kidney disease with stage 1 through stage 4 chronic kidney disease, or unspecified chronic kidney disease; E78.5 Hyperlipidemia, unspecified; E55.9 Vitamin D deficiency, unspecified; N40.0 Benign prostatic hyperplasia without lower urinary tract symptoms; I48.2 Chronic atrial fibrillation; D53.9 Nutritional anemia, unspecified; D72.819 Decreased white blood cell count, unspecified; Z68.25 Body mass index [BMI] 25.0-25.9, adult; Z85.528 Personal history of other malignant neoplasm of kidney; I25.2 Old myocardial infarction; Z90.49 Acquired absence of other specified parts of digestive tract; Z90.5 Acquired absence of kidney; Z87.891 Personal history of nicotine dependence; Z82.49 Family history of ischemic heart disease and other diseases of the circulatory system; Z80.9 Family history of malignant neoplasm, unspecified; Z79.82 Long term (current) use of aspirin; Z79.899 Other long term (current) drug therapy

== ENCOUNTER 2018-10-11 00:07 | Inpatient (IN) | payer OTHER ==
[2018-10-11] VITALS (7 sets, daily range): BP systolic 131–167; BP diastolic 59–79
[~2018-10-11] VITALS: Ht 170.1 cm; Wt 77.6 kg
[~2018-10-11 00:07] MED LIST changes: +ASPIRIN ADULT L81 MG PO; +BUMETANIDE1 MG PO; +COREG6.25 MG PO; +DULCOLAX5 M1 PO; +FERROUS SULFAT324 M2 PO; +HYDRALAZINE HYD50 MG PO; +Ipratropium Brom3 ML INH; +LEVAQUIN250 M1 PO; +LIPITOR20 MG PO; -LIPITOR40 MG PO; +LYRICA50 M1 PO; +NEURONTIN100 MG PO; +NIFEDIPINE60 MG PO; +ONDANSETRON4 MG SL; +PANTOPRAZOLE SO20 MG PO; +PEPCID20 MG PO; +PLAVIX75 M1 PO; +PROTONIX40 MG PO; +RENA-VITE1 TAB PO; +RENO CAPS SOFTGE1 MG PO; +RENVELA800 MG PO; +SPIRIVA -- 3018 MCG INH; +TRAMADOL HCL50 MG PO; +Transderm Nitr0.6 MG TD
--- NOTE | 2018-10-11 00:36 | NUR ---
ASSISTED PT TO BSC, GAIT UNSTEADY AT THIS TIME. PT STATES "I NEED TO HAVE A BOWEL MOVEMENT."
--- NOTE | 2018-10-11 00:45 | NUR ---
PT ASSISTED BACK TO BED, UNABLE TO OBTAIN URINE SPECIMAN, STOOL MIXED IN WITH URINE. PT CLEANED AND PLACED BACK IN BED FOR COMFORT.
--- NOTE | 2018-10-11 00:58 | NUR ---
PT TO CT VIA CART AND LAB ANIMAL TECHNOLOGIST.
[2018-10-11 01:03] LABS: BASO # 0.1 10*3/uL (0.0-0.1); BASO % 0.9 % (0.0-1.0); EOS # 0.2 10*3/uL (0.0-0.4); EOS % 2.8 % (1.0-4.0); HEMATOCRIT 44.2 % (42.0-52.0); HEMOGLOBIN 14.1 g/dl (14.0-18.0); LYMPH # 1.1 10*3/uL (1.3-4.4); MEAN CELL VOLUME 95.3 fl (80.0-94.0); MEAN CORPUSCULAR HGB 30.4 pg (27.0-31.0); MEAN CORPUSCULAR HGB CONC 31.9 g/dl (33.0-37.0); MEAN PLATELET VOLUME 10.1 fl (9.6-12.3); MONO # 0.5 10*3/uL (0.1-1.0); MONO % 6.1 % (3.0-9.0); NEUT % 75.9 % (47.0-73.0); PLATELET COUNT AUTOMATED 155 10*3/uL (130-400); RED BLOOD COUNT 4.64 10*6/uL (4.50-5.90); RED CELL DISTRI WIDTH 14.9 % (0-14.5); WHITE BLOOD COUNT 7.8 10*3/uL (4.8-10.8)
[2018-10-11 01:18] LABS: ALBUMIN 3.5 gm/dl (3.1-4.5); CREATININE 4.7 mg/dL (0.70-1.30); POTASSIUM 4.5 mmol/L (3.5-5.1); TOTAL PROTEIN 7.3 gm/dL (6.4-8.2)
--- NOTE | 2018-10-11 01:45 | NUR ---
PATIENT UP TO USE THE BED SIDE COMMODE. VSS. RN WILL CONT TO MONITOR
--- NOTE | 2018-10-11 01:51 | NUR ---
PATIENT BACK IN BED. LAYING IN BED AWAKE. STATES HE IS STILL HAVING SOME ABDOMINAL DISCOMFORT WAS GIVEN DEMEROL AND ZOFRAN FOR THE ABDOMINAL DISCOMFORT. VSS. RN WILL CONT TO MONITOR
--- NOTE | 2018-10-11 03:01 | NUR ---
PATIENT IN BED LAYING DOWN RESTING HIS EYES. AOX3. CALM AND NO DISTRESS NOTED AT THIS TIME. RESP EASY AND NONLABORED. RN WILL CONT TO MONITOR
[2018-10-11 04:43] LABS: BILIRUBIN NEGATIVE (NEGATIVE); BLOOD TRACE-INTACT (NEGATIVE); CLARITY CLEAR (CLEAR); COLOR YELLOW (YELLOW); GLUCOSE TRACE (NEGATIVE); KETONE NEGATIVE (NEGATIVE); LEUKO ESTERASE NEGATIVE (NEGATIVE); NITRITE NEGATIVE (NEGATIVE); UROBILINOGEN 0.2 E.U./dl (0.2-1.0)
--- NOTE | 2018-10-11 04:56 | NUR ---
A 82, admitted to 5E, under the services of JAMSHID Graff DO with a diagnosis of NAUSEA AMD VOMITTING . Chief complaint is NAUSEA VOMITTING. Patient arrived via stretcher from ER. Monitor applied. Initial assessment completed. Vital signs taken and recorded. JAMSHID GRAFF DO notified of admission to the unit. Orders received. See assessment for past medical history, medications and allergies. Patient and/or family oriented to unit. [facility] visitation policy reviewed. Clothing/patient valuable form completed. NORBERTO WOODSON
[2018-10-11 05:16] LABS: EPITHELIAL CELLS 0-5; WBC 0-2 wbc/hpf (0-5)
--- NOTE | 2018-10-11 05:33 | NUR ---
CALLED DR. MUSTAFA ABOUT [facility] RECOMMENDATIONS ON LOVENOX, M.O.M AND TO CLARIFY PHENERGAN. HE IS GOING TO LOOK AT THOSE MEDICATIONS AND CORRECT.
--- NOTE | 2018-10-11 05:59 | NUR ---
DR. SUMNER ANSWERING SERVICE NOTIFIED OF NEW CONSULT. DIALYSIS MADE AWARE OF NEW PATIENT.
--- NOTE | 2018-10-11 06:01 | NUR ---
DR. GALE NOTFIIED THAT MED REC IS UP TO DATE PER PATIENT MEDICATION LIST.
[2018-10-11 07:14] LABS: INTERNATIONAL NORM RATIO 1.1 (2.0-3.5)
[2018-10-11 08:02] LABS: ALBUMIN 3.1 gm/dl (3.1-4.5); CREATININE 4.84 mg/dL (0.70-1.30); PHOSPHOROUS 4.5 mg/dL (2.5-4.9); TOTAL PROTEIN 6.3 gm/dL (6.4-8.2)
[2018-10-11 08:08] LABS: FREE T4 1.05 ng/dl (0.76-1.46)
[2018-10-11 08:10] LABS: POTASSIUM 5.5 mmol/L (3.5-5.1); THYROID STIM HORMONE (HS) 4.79 uIU/ml (0.358-4.75)
[2018-10-11 09:56] LABS: BASO % 0.6 % (0.0-1.0); EOS % 0.6 % (1.0-4.0); HEMATOCRIT 42.2 % (42.0-52.0); HEMOGLOBIN 13.4 g/dl (14.0-18.0); LYMPH # 0.9 10*3/uL (1.3-4.4); LYMPH % 12.8 % (27.0-41.0); MEAN CELL VOLUME 95.5 fl (80.0-94.0); MEAN CORPUSCULAR HGB 30.3 pg (27.0-31.0); MEAN CORPUSCULAR HGB CONC 31.8 g/dl (33.0-37.0); MEAN PLATELET VOLUME 10.1 fl (9.6-12.3); MONO # 0.4 10*3/uL (0.1-1.0); MONO % 5.7 % (3.0-9.0); NEUT # 5.4 10*3/uL (2.3-7.9); NEUT % 80.2 % (47.0-73.0); PLATELET COUNT AUTOMATED 135 10*3/uL (130-400); RED BLOOD COUNT 4.42 10*6/uL (4.50-5.90); RED CELL DISTRI WIDTH 14.7 % (0-14.5); WHITE BLOOD COUNT 6.7 10*3/uL (4.8-10.8)
--- NOTE | 2018-10-11 17:58 | NUR ---
Nursing screen received and chart review completed. Patient admitted with gastroenteritis. Consider Occupational Therapy referral if patient demonstrates a decline in ADLs or safety in functional mobility. Thank You. Donna Guerrier OTR/L
--- NOTE | 2018-10-11 20:00 | NUR ---
PT. SLEEPING; RESPIRATIONS EASY ON . CALL LIGHT WITHIN REACH.
--- NOTE | 2018-10-11 22:00 | NUR ---
TOOK PO MEDICATIONS WITHOUT DIFFICULTY. PT. VOICES NO C/O AT THIS TIME. CALL LIGHT WITHIN REACH.
[2018-10-12] VITALS: BP 146/58
--- NOTE | 2018-10-12 04:00 | NUR ---
REMAINS ASLEEP; CALL LIGHT WITHIN REACH.
[2018-10-12 06:40] LABS: BASO # 0.1 10*3/uL (0.0-0.1); BASO % 1.1 % (0.0-1.0); EOS # 0.2 10*3/uL (0.0-0.4); EOS % 4.9 % (1.0-4.0); HEMATOCRIT 39.5 % (42.0-52.0); HEMOGLOBIN 12.3 g/dl (14.0-18.0); LYMPH # 1.4 10*3/uL (1.3-4.4); LYMPH % 30.4 % (27.0-41.0); MEAN CELL VOLUME 96.3 fl (80.0-94.0); MEAN CORPUSCULAR HGB CONC 31.1 g/dl (33.0-37.0); MEAN PLATELET VOLUME 10.3 fl (9.6-12.3); MONO # 0.5 10*3/uL (0.1-1.0); MONO % 11.4 % (3.0-9.0); NEUT # 2.5 10*3/uL (2.3-7.9); PLATELET COUNT AUTOMATED 125 10*3/uL (130-400); RED CELL DISTRI WIDTH 14.6 % (0-14.5); WHITE BLOOD COUNT 4.7 10*3/uL (4.8-10.8)
[2018-10-12 07:06] LABS: CREATININE 3.32 mg/dL (0.70-1.30)
[2018-10-12 08:00] VITALS: BP 142/78
--- NOTE | 2018-10-12 11:53 | NUR ---
Birth Certificate Clerk in to talk to patient. Patient states lives at HOME with ALONE. There are NO steps in the home. Physician: [place] Pharmacy: [place] Home health services: NONE Patient's level of ADLs: MINIMAL ASSIST Patient has working utilities: YES DME: WALKER, OXYGEN Follow-up physician's appointment after d/c: WILL BE MADE BY HOSPITALIST NURSE DIRECTOR ON DISCHARGE Does patient want to access PORTAL?: NO Discharge plan PT STATES HE LIVES ALONE IN AN APARTMENT AND IS MOSTLY INDEPENDENT IN CARE. GOES TO DIALYSIS , AND [employer]. STATES HE USE TO HAVE HOME HEALTH THROUGH [facility] AND WOULD LIKE THEM AGAIN. [facility] NURSE DIRECTOR FOR ORDER FOR HOME HEALTH. WILL CONTINUE TO FOLLOW.. CATALIAN RIVERA
--- NOTE | 2018-10-12 12:39 | NUR ---
REFERRAL FAXED TO [facility].
[2018-10-12 16:00] VITALS: BP 142/84
[2018-10-12 20:00] VITALS: BP 115/52
[2018-10-13] VITALS: BP 114/55
--- NOTE | 2018-10-13 03:53 | NUR ---
PATIENT IN BED SLEEPING. NO SIGNS OR SYMPTOMS OF DISTRESS NOTED. AROUSES TO VERBAL STIMULI. RESPIRATIONS REGULAR AND NON-LABORED. CALL LIGHT IN REACH.
--- NOTE | 2018-10-13 04:02 | NUR ---
24 HR chart check completed.
[2018-10-13 06:07] LABS: CREATININE 2.91 mg/dL (0.70-1.30); PHOSPHOROUS 4.2 mg/dL (2.5-4.9)
[2018-10-13 06:12] LABS: BASO # 0.1 10*3/uL (0.0-0.1); BASO % 1.1 % (0.0-1.0); EOS # 0.3 10*3/uL (0.0-0.4); EOS % 5.1 % (1.0-4.0); HEMATOCRIT 37.7 % (42.0-52.0); HEMOGLOBIN 11.7 g/dl (14.0-18.0); LYMPH # 1.6 10*3/uL (1.3-4.4); LYMPH % 29.1 % (27.0-41.0); MEAN CELL VOLUME 96.4 fl (80.0-94.0); MEAN CORPUSCULAR HGB 29.9 pg (27.0-31.0); MEAN PLATELET VOLUME 10.7 fl (9.6-12.3); MONO # 0.6 10*3/uL (0.1-1.0); MONO % 10.5 % (3.0-9.0); NEUT % 53.8 % (47.0-73.0); PLATELET COUNT AUTOMATED 112 10*3/uL (130-400); RED BLOOD COUNT 3.91 10*6/uL (4.50-5.90); RED CELL DISTRI WIDTH 14.3 % (0-14.5); WHITE BLOOD COUNT 5.6 10*3/uL (4.8-10.8)
[2018-10-13 08:00] VITALS: BP 123/64
[2018-10-13] MEDS ORDERED: VITAMIN D5000 UNI1 PO (11:17)
[2018-10-13 12:00] VITALS: BP 136/61
--- NOTE | 2018-10-13 13:26 | NUR ---
CALLED [facility] TO SEE IT THEY COULD BRING A TANK FOR MR TOLBERT. THEY STATE THEY WILL TRY TO GET IN TOUCH WITH BOILER INSTALLER TO BRING A TANK TO GET PT HOME. STEFFEN AGUILAR CLERK ON 5E NOTIFIED.
--- NOTE | 2018-10-13 15:00 | NUR ---
Discharge instructions reviewed with patient/family. Patient receptive and verbalizes understanding. Follow-up care arranged. Written instructions given to patient/family.[facility] PROVIDED O2 TANK FOR D/C. PT D/C'D VIA CAB. ALEXIS MELENDEZ
--- NOTE | 2018-10-13 16:31 | NUR ---
PHYSICAL THERAPY Nursing screen received. PAtient discharged, Thank you. Pilar Portillo,PT
[2018-11-06] MEDS ORDERED: ASPIRIN CHEWABL81 MG PO (16:13)
[2018-11-06] MEDS ORDERED: Ipratropium Brom3 ML INH (16:14)
[2018-11-06] MEDS ORDERED: MIRALAX17 GM PO (16:16)
[2018-11-06] MEDS ORDERED: LEVOFLOXACIN500 MG PO (16:16)
[2018-11-06] MEDS ORDERED: RENVELA800 MG PO (16:17)
[2018-11-06] MEDS ORDERED: RANITIDINE75 MG PO (16:17)
[2018-11-06] MEDS ORDERED: SENOKOT-S TABL1 EACH PO (16:18)
[2018-11-06] MEDS ORDERED: TYLENOL325 M1 PO (16:19)
[2018-11-07] MEDS ORDERED: FEROSUL325 MG PO (04:50)
[2018-11-07] MEDS ORDERED: HYDRALAZINE HYD50 MG PO (04:51)
[2018-11-07] MEDS ORDERED: PEPCID20 MG PO (04:56)
[2018-11-07] MEDS ORDERED: OMEPRAZOLE20 M2 PO (10:24)
[2018-11-07] MEDS ORDERED: OCUVITE WITH L1 EACH PO (10:26)
[2018-11-07] MEDS ORDERED: RENO CAPS SOFTGE1 MG PO (10:27)
[2018-11-07] MEDS ORDERED: Ipratropium Brom3 ML INH (10:30)
[2018-11-11] MEDS ORDERED: NEURONTIN100 MG PO (11:26)
[2018-11-11] MEDS ORDERED: BUMETANIDE1 MG PO (11:26)
[2018-11-11] MEDS ORDERED: RENVELA800 MG PO (11:27)
[2018-11-11] MEDS ORDERED: RENO CAPS SOFTGE1 MG PO (11:27)
== END 2018-10-13 15:00 | disposition home health service (06) | DRG 391 ==
LOC: ED 00:07 → EDHOLD 03:25 → 5E 03:25
PROVIDERS: Emergency Medicine; Family Medicine; Internal Medicine; ADMIT Internal Medicine
PROC: 5A1D70Z Performance of Urinary Filtration, Intermittent, Less than 6 Hours Per Day (ICD-10-PCS; principal; 2018-10-11)
DX: K52.9 Noninfective gastroenteritis and colitis, unspecified (principal); N18.6 End stage renal disease; J96.11 Chronic respiratory failure with hypoxia; E78.5 Hyperlipidemia, unspecified; I48.2 Chronic atrial fibrillation; E83.41 Hypermagnesemia; E87.5 Hyperkalemia; N40.0 Benign prostatic hyperplasia without lower urinary tract symptoms; J44.9 Chronic obstructive pulmonary disease, unspecified; D72.829 Elevated white blood cell count, unspecified; E66.9 Obesity, unspecified; Z99.81 Dependence on supplemental oxygen; Z79.899 Other long term (current) drug therapy; I25.2 Old myocardial infarction; Z90.49 Acquired absence of other specified parts of digestive tract; Z87.891 Personal history of nicotine dependence; Z82.49 Family history of ischemic heart disease and other diseases of the circulatory system; Z80.9 Family history of malignant neoplasm, unspecified; Z68.25 Body mass index [BMI] 25.0-25.9, adult

== ENCOUNTER 2018-10-14 06:52 | Inpatient (IN) | payer OTHER ==
[2018-10-14] VITALS (8 sets, daily range): BP systolic 104–139; BP diastolic 32–78
--- NOTE | ~2018-10-14 | PR ---
[place], [place] PROGRESS NOTE [id number] UN[facility] #: [id number] ROOM: 523 DOCTOR: SWAPNA BOO MD,CLAIRE BIRTHDATE: [birth year] DOS: 10/18/2018 PULMONARY PROGRESS NOTE SUBJECTIVE: The patient has been receiving hemodialysis as usual hemodialysis today. Respiratory symptoms continue to resolve and improved. Denies symptoms of chest pain, fever or chills. Denies symptoms of hemoptysis. Shortness of breath has been improving, but not completely resolved. OBJECTIVE: VITAL SIGNS: Which were recorded showed temperature noted as normal, respiratory rate 18, heart rate of 55, blood pressure 149/72. Pulse oxygen saturation on 3.5 liters nasal cannula was 95% saturation. HEENT: No acute change. CARDIOVASCULAR: S1 and S2 audible. LUNGS: No wheezing or crackles on today's examination. ABDOMEN: Soft, nontender. Bowel sound is present. EXTREMITIES: Without any acute edema. IMPRESSION: 1. The patient with gradual progressive resolution of acute on chronic hypercapnic and hypoxemic respiratory failure. 2. Resolving acute tracheobronchitis and exacerbation of chronic obstructive pulmonary disease. 3. End-stage renal failure, on hemodialysis. 4. Muscle decondition secondary to current acute illness. PLAN OF MANAGEMENT: No changes in the plan of care. Assess the patient for possible longterm facility placement for discharge planning. Other treatment for the patient as previously will be continued without any changes, all other supportive plan of therapy, care and management. CLAIRE BARCENAS MD CM:PNTRANS 1148 0032 CLAIRE BOO MD 10/27/18 0654 interface
--- NOTE | ~2018-10-14 | PR ---
[place], [place] PROGRESS NOTE NAME: PRESTON TOLBERT UNIT #: [id number] ROOM: 523 DOCTOR: SWAPNA BOO MD,CLAIRE BIRTHDATE: [birth year] DOS: 10/17/2018 SUBJECTIVE: He has been showing gradual reduction and improvement of respiratory distress symptoms, shortness of breath, wheezing, and cough. There were no symptoms of chest pain or fever. Denies symptoms of hemoptysis. OBJECTIVE: VITAL SIGNS: Normal temperature, respiratory rate 18, heart rate 54, blood pressure 112/56. Pulse oxygen saturation 3.5 liters nasal cannula 95% saturation. HEENT: Examination shows no new change. NECK: Supple. CARDIOVASCULAR: S1, S2 is audible. LUNGS: Scattered wheezing, no crackles. ABDOMEN: Soft and nontender. Bowel sounds present. EXTREMITIES: No acute edema. LABORATORY DATA: Culture of the sputum was noted moderate growth of yeast. BMP today: BUN 34 and creatinine 3.26. CBC this morning: WBC count normal, hemoglobin 11.2. IMPRESSION: The patient has been noted with continued improvement and resolution of acute on chronic hypercapnic hypoxic respiratory failure, exacerbation of chronic obstructive pulmonary disease, acute tracheobronchitis.1. 2. History of renal failure, on hemodialysis. PLAN OF TREATMENT: Continuation of bronchodilators, oxygen supplementation and other therapy. Decrease Solu-Medrol 40 mg daily. Other treatment therapy, plan of management will be changed based on further progression of the illness. CLAIRE BARCENAS MD CM:PNTRANS 1213 1353 CLAIRE BOO MD 10/30/18 0909 interface
--- NOTE | ~2018-10-14 | PR ---
[place], [place] PROGRESS NOTE NAME[id number] UNIT #: [id number] ROOM: 523 DOCTOR: SWAPNA BOO MD,CLAIRE BIRTHDATE: [birth year] DOS: 10/15/2018 PULMONARY PROGRESS NOTE SUBJECTIVE: The patient was noted comfortable at this time without any acute distress. He has been noted with reduction in symptoms of shortness breath with continued steroids and bronchodilators. He has not been noted any symptoms of chest pain, fever or chills. The patient denies symptoms of nausea or vomiting. Denies symptoms of abdominal pain. Denies any edema or pain of the lower extremities. He has not been noted any symptoms of vomiting in the last 24 hours. He has done well with the use of oxygen supplementation and other therapies. He has completed his routine hemodialysis yesterday successfully as well. REVIEW OF SYSTEMS: Otherwise noted as negative. OBJECTIVE: VITAL SIGNS: Temperature noted with gradual afebrile status, highest temperature noted at 100.2 degrees Fahrenheit, currently noted afebrile. Respiratory rate of 17-24, heart rate of 74-68, blood pressure 119/60 to 120/63. HEENT: Head was atraumatic. Eyes nonicterus. GENERAL: The patient was noted awake and alert. CARDIOVASCULAR: S1 and S2 audible. LUNGS: Moderate decreased breath sounds with expiratory wheezing in the lungs bilaterally. ABDOMEN: Flat, soft, nontender. EXTREMITIES: Without any acute changes. MUSCULOSKELETAL: Without any acute deformity. CENTRAL NERVOUS SYSTEM: The patient's cranial nerves 2-12 appeared to be intact. No focal deficit. LABORATORY DATA: CBC today, WBC count normal, hemoglobin 11.4, platelet count of 100,000. BMP this morning, BUN 26, creatinine 3.11, glucose 151. LFTs with albumin 2.8, total protein 6.3. PT/PTT done this morning was normal. Arterial blood gas that was done yesterday with pH of 7.40, pCO2 of 48, pO2 of 104 with the Venturi mask. IMPRESSION: 1. Acute on chronic hypercapnic and hypoxemic respiratory failure, which is improving gradually. 2. Acute exacerbation of chronic obstructive pulmonary disease with possible aspiration pneumonia, treated with antibiotics. 3. Abdominal aortic aneurysm previously by history. 4. End-stage renal failure. 5. Overall debility. PLAN OF MANAGEMENT: The patient could be transferred to telemetry floor if necessary. Continue with BiPAP with oxygen supplementation. Bronchodilator and use of corticosteroids at the same dose, reduction dose will be started tomorrow morning. De-escalation of antibiotic spectrum and reduction of antibiotic [place], [place] PROGRESS NOTE NAME: PRESTON TOLBERT UNIT #: [id number] ROOM: 523 DOCTOR: CLAIRE SHARPE MD BIRTHDATE: [birth year] spectrum based on culture guidance. CLAIRE BARCENAS MD CM:PNTRANS 1523 0020 CLAIRE BOO MD 10/16/18 0021 interface
--- NOTE | ~2018-10-14 | EKG ---
[place], [place] ELECTROCARDIOGRAM REPORT NAME: PRESTON TOLBERT UNIT #: [id number] ROOM: 523 DOCTOR: SHASHI DRAFT REPORT BIRTHDATE: [birth year] [facility] Test Date: 2018-10-14 Test Time: 07:10:48 Pat Name: PRESTON TOLBERT Department: Room: 523 Gender: M Solutions Delivery Consultant: : 1935 Requested By: JANA ENG Order Number: [id number] Reading MD: Isrrael Perez MD Measurements Intervals Hubert Rate: 74 P: 1 IA: 261 QRS: 24 QRSD: 99 T: 204 QT: 392 QTc: 435 Interpretive Statements Sinus rhythm Prolonged IA interval Probable left ventricular hypertrophy Nonspecific T abnormalities, lateral leads Compared to ECG 08/15/2018 10:56:18 T-wave abnormality now present Electronically Signed On 10-16-2018 4:50:55 PST by Isrrael Perez MD CM:EKGRPT:ELECTROCARDIOGRAM REPORT 0710 0450 JANA DANIELLE DRAFT REPORT JANA ENG MD
--- NOTE | ~2018-10-14 | PR ---
[place], [place] PROGRESS NOTE NAME[id number] #: [id number] ROOM: 523 DOCTOR: CHARLY ALARCON DO BIRTHDATE: [birth year] DOS: 10/18/2018 SUBJECTIVE: The patient offers no complaints at present. He denies any orthopnea, PND or dyspnea. He is seen on dialysis and tolerating his treatment well at present. PHYSICAL EXAMINATION: VITAL SIGNS: Blood pressure is 149/72, pulse is 64, respirations 18, temperature is 97.6 degrees Celsius. GENERAL APPEARANCE: Well-appearing male, awake, alert, oriented x 3, examined on dialysis. NECK: There is no JVD appreciated. LUNGS: Mild expiratory wheezing, otherwise clear to auscultation and percussion. HEART: Regular without S3 or rub. Murmur was not appreciated. ABDOMEN: Soft, nontender. EXTREMITIES: No clubbing, cyanosis. Trace edema is noted. LABORATORY DATA: Today, none. ASSESSMENT: 1. End-stage renal disease. Current electrolytes are not available from today. Volume status is satisfactory. 2. Hypertension, under satisfactory control. 3. Anemia. Hemoglobin and hematocrit is not available for today. 4. Hypoxemia, symptomatically improved, maintained on steroid taper and antibiotics. RECOMMENDATIONS: No change in renal replacement therapy. CHARLY ALARCON DO CM:PNTRANS 1021 0336 CHARLY ALARCON DO 10/19/18 0337 interface
--- NOTE | ~2018-10-14 | PR ---
[place], [place] PROGRESS NOTE NAME: PRESTON TOLBERT UNIT #: [id number] ROOM: 523 DOCTOR: SWAPNA BOO MD,CLAIRE BIRTHDATE: [birth year] DOS: 10/16/2018 PULMONARY PROGRESS NOTE SUBJECTIVE: He has been showing continued gradual reduction and improvement of respiratory symptom, coughing and shortness of breath, all the symptoms have been decreasing. There were no symptoms of chest pain. The patient denies symptoms of nausea, vomiting. He had not been noted symptoms of fever or chills. Denies symptoms of pain of the lower extremity edema. General weakness and fatigue were noted. Appetite was fair. Remaining review of systems negative. OBJECTIVE: VITAL SIGNS: Normal temperature, respiratory rate 20, heart rate of 58-64, blood pressure 120/78, this morning. Pulse oxygen saturation on 4 liters nasal cannula 95% saturation maintained. HEENT: Examination shows head was atraumatic. Eyes: No icterus. NECK: Supple. CARDIOVASCULAR: S1, S2 audible. LUNGS: Moderate decreased breath sounds noted in the lungs. Expiratory wheezing was present, partially decreased, but not resolved. ABDOMEN: Soft, nontender. EXTREMITIES: No acute change. VISIBLE SKIN: No lesions or rashes. MUSCULOSKELETAL: Without any acute deformities. LABORATORY DATA: The cultures of the blood, no bacterial growth. The sputum culture noted with many white blood cells, moderate epithelial cells, moderate budding yeast, moderate gram-positive cocci in pairs with moderate growth of yeast, with final results pending. Urine for legionella antigen was negative. IMPRESSION: 1. The patient has been currently noted with improving acute on chronic hypercapnic hypoxemic respiratory failure gradually. 2. Severe acute exacerbation of chronic obstructive pulmonary disease with aspiration pneumonia, treated with antibiotic, seem to be improving clinically. 3. The patient with end-stage renal failure, on hemodialysis. 4. Debility. PLAN OF MANAGEMENT: Bronchodilators, will be continued The Solu-Medrol dose will be decreased to b.i.d. dosing. Discontinuation of the broad-spectrum intravenous antibiotic to the lower spectrum of antibiotics. Obtain a chest x-ray to assess the resolving pneumonia. [place], [place] PROGRESS NOTE NAME: PRESTON TOLBERT ACC #: [id number] UNIT #: [id number] ROOM: 523 DOCTOR: CLAIRE SHARPE MD BIRTHDATE: [birth year] CLAIRE BARCENAS MD CM:PNTRANS [id number] CLAIRE BOO MD 10/30/18 0908 interface
--- NOTE | ~2018-10-14 | PR ---
[place], [place] PROGRESS NOTE NAME: [facility] [id number] UNIT #: [id number] ROOM: 523 DOCTOR: CHARLY ALARCON DO BIRTHDATE: [birth year] DOS: 10/19/2018 RENAL PROGRESS NOTE SUBJECTIVE: The patient offers no complaints today except for an annoying, but improving cough. He denies orthopnea, PND. He denies dyspnea. He is eating well. Denies any abdominal pain, nausea or vomiting or diarrhea. As an aside, apparently he has been experiencing some clear rectal discharge; this has been going on for several weeks preceding this admission. PHYSICAL EXAMINATION: VITAL SIGNS: Blood pressure 130/56, pulse of 60, respirations 18, and temperature is 97.6 degrees Fahrenheit. GENERAL APPEARANCE: A well-appearing male in no apparent distress. LUNGS: Exhibit minimal expiratory wheezing, otherwise clear to auscultation and percussion. HEART: Regular without S3, rub, murmur or heave noted. ABDOMEN: Soft, nontender to palpation. EXTREMITIES: No clubbing, cyanosis. There is trace edema noted. LABORATORY DATA: From today, none. ASSESSMENT AND PLAN: 1. End-stage renal disease. Volume status appears to be satisfactory. No electrolytes are available for review. 2. Hypertension. Blood pressure under satisfactory control. 3. Hypoxemia, symptomatically improved and maintained on steroid taper and antibiotics. 4. Anemia. Hemoglobin and hematocrit is not available from today. 5. Rectal discharge. Unclear nature and significance, but should be evaluated as an outpatient. RECOMMENDATIONS: The patient tentatively scheduled for discharge today. He may be discharged from my perspective. He has been transitioned into his outpatient Tuesday, Tuesday, Tuesday schedule. He should see GI as an outpatient for evaluation of the above described rectal discharge if this persists. [place], [place] PROGRESS NOTE NAME: PRESTON TOLBERT UNIT #: [id number] ROOM: 523 DOCTOR: CHARLY ALARCON DO BIRTHDATE: [birth year] CHARLY ALARCON DO CM:PNTRANS [id number] CHARLY ALARCON DO 10/31/18 0733 interface
--- NOTE | ~2018-10-14 | PR ---
[place], [place] PROGRESS NOTE NAME: PRESTON TOLBERT UNIT #: [id number] ROOM: 523 DOCTOR: SWAPNA BOO MD,CLAIRE BIRTHDATE: [birth year] DOS: 10/19/2018 SUBJECTIVE: He has been noted comfortable at this time. Coughing has been noted intermittently [id number] without any sputum expectoration. Shortness of breath was resolving. There were no symptoms of chest pain, fever or chills reported by the patient. OBJECTIVE: GENERAL: This morning of the patient was examined. The patient is sitting on side of the bed. He does not have any distress. VITAL SIGNS: Normal temperature, respiratory rate 18, heart rate 50, blood pressure 142/60. Pulse oxygen saturation recorded as 98% on 3.5 liter nasal cannula. HEENT: Examination shows no acute change. NECK: Supple. CARDIOVASCULAR: S1, S2 is audible. LUNGS: The patient was noted without any wheeze or crackles at the present time. Breaths are noted mildly diminished bilaterally. ABDOMEN: Soft, nontender. EXTREMITIES: Without any acute edema. IMPRESSION: 1. The patient with gradual, but progressive resolution was noted for acute exacerbation of chronic obstructive pulmonary disease. 2. Acute on chronic hypercapnic hypoxemic respiratory failure. 3. Severe debility secondary to current acute illness. 4. End-stage renal failure, on hemodialysis. PLAN OF TREATMENT: The [facility]. No changes from the pulmonary standpoint today, on current assessment. CLAIRE BARCENAS MD CM:PNTRANS [id number] CLAIRE BOO MD 10/19/18 1400 interface
--- NOTE | ~2018-10-14 | CON ---
[place], [place] REPORT OF CONSULTATION NAME[id number] UNIT #: [id number] ROOM: [facility] DOCTOR: CLAIRE SHARPE MD BIRTHDATE: [birth year] DOS: 10/14/2018 PULMONARY CONSULTATION, EVALUATION, AND MANAGEMENT REASON FOR CONSULTATION: Assess the patient for current respiratory failure and other symptoms. HISTORY OF PRESENT ILLNESS: An 82-year-old white male with longstanding history of COPD, end-stage renal failure, on regular hemodialysis Tuesday, , and Tuesday, was discharged from the hospital yesterday. The patient has been noted unwitnessed fall at home, noted with vomiting, and also probably defecation or incontinence of the stool. The patient reached his [facility]. The patient was found to be wheezing with significant oxygen desaturation as the EMS arrived. The patient was noted awake and alert though. He has not been noted loss of consciousness. Some confusion status was suggested. The patient is stating symptoms of coughing without any sputum expectoration with chest congestion in the last several hours. The patient is admitted to the hospital for the medical management of his current problem. Chest x-ray of the patient was suggestive possibility of bilateral multilobar pneumonia with suspicion of aspiration. The patient is currently being prepared for starting on dialysis. He does have symptoms of shortness of breath that remains persistent. Oxygen supplementation was continued with 40% Ventimask for the medical management of hypoxia. He denies any symptoms of chest pain. He did not have any symptoms of hemoptysis. Wheezing was reported. Shortness of breath occurs at rest and on minimal activity. REVIEW OF SYSTEMS: CONSTITUTIONAL: Fatigue and tiredness noted without any symptoms of fever or chills. EYES: Denies burning, redness or tenderness. EARS, NOSE, THROAT SYMPTOMS: Denies sore throat, hoarseness, otalgia, or postnasal drainage. CARDIOVASCULAR: Denies anginal pain, edema, or pain of the lower extremities. GASTROINTESTINAL: Denies dysphagia, nausea, vomiting, diarrhea, abdominal pain, hematemesis, melena, or hematochezia. GENITOURINARY: End-stage renal failure, on hemodialysis. MUSCULOSKELETAL: No acute joint pain, redness, tenderness or deformities. SKIN: Denies any lesions or rashes. CENTRAL NERVOUS SYSTEM: General weakness reported. There were no focal neurologic deficits. Remaining systems were reviewed, they were noted all negative. PAST MEDICAL HISTORY: 1. Longstanding chronic obstructive pulmonary disease. 2. Chronic hypoxic respiratory failure, use of oxygen. 3. End-stage renal failure, on hemodialysis. 4. Essential hypertension. 5. History of kidney cancer in the past. 6. Coronary artery disease with past myocardial infarction. [place], [place] REPORT OF CONSULTATION NAME: PRESTON TOLBERT UNIT #: [id number] ROOM: [facility] DOCTOR: SWAPNA BOO MD,[facility] BIRTHDATE: [birth year] 7. Pulmonary nodule. 8. Vitamin D deficiency. PAST SURGICAL HISTORY: Reported with: 1. Thoracic aortic aneurysm repair. 2. Bilateral cataract extraction and lens implantation. 3. Cholecystectomy. 4. Surgery of the mandible. 5. Partial nephrectomy, left side, for the management of kidney cancer. 6. Cardiac catheterization with coronary artery stents insertion. SOCIAL HISTORY: The patient is currently , lives at home by himself. Noted heavy tobacco use, started at younger age, 2 packs of cigarettes per day, and that was discontinued in 1993. The patient denies any history of alcohol dependence at the present time. There was no history of illicit drug use. FAMILY HISTORY: Father at 58 years old from heart problem. Mother at 83 from complications of malignancy. HOME MEDICATIONS: Use of Lipitor, Bumex, Coreg, vitamin D, Plavix, famotidine, ferrous sulfate, finasteride, gabapentin, DuoNeb, Spiriva, and nifedipine. CURRENT MEDICATIONS: The current medications administered to the patient for this hospitalization were noted as use of Protonix, heparin for DVT prophylaxis at 5000 units subcutaneously b.i.d., and temazepam. The patient has also been given antibiotics as Zosyn and vancomycin. DRUG ALLERGIES: No known drug allergies. PHYSICAL EXAMINATION: GENERAL: An 82-year-old elderly male, currently resting comfortably on the bed, using oxygen supplementation with Venturi mask. Height of 5 feet 7 inches, weight 168 pounds, BMI is 25. VITAL SIGNS: Temperature 100.2 degrees Fahrenheit at noon, otherwise noted afebrile from admission, respiratory rate highest of 30, currently 16, heart rate ranging between 75-80, blood pressure 139/66 to 106/78. Pulse oxygen saturation was recorded as 89-94% saturation with the Venturi mask. HEENT: Mild senile hearing loss. Head was atraumatic. Eyes nonicterus. NECK: Supple. CARDIOVASCULAR: S1 and S2 audible. LUNGS: The patient was noted with moderate general reduction in breath sounds bilaterally. Scattered expiratory wheezing. Occasional crackles. ABDOMEN: Soft, nontender. Bowel sounds present. EXTREMITIES: The patient was noted without any acute edema. Scattered bruising of the skin, most likely medication related. MUSCULOSKELETAL: The patient was noted without any acute deformities. CENTRAL NERVOUS SYSTEM: Cranial nerves 2-12 intact. LABORATORY AND DIAGNOSTIC DATA: PT/PTT was noted normal this morning. CBC this morning, WBC count 11.6, hemoglobin 13.6, hematocrit normal, platelet count was [place], [place] REPORT OF CONSULTATION NAME: PRESTON TOLBERT UNIT #: [id number] ROOM: [facility] DOCTOR: ELENA SHARPE MDM BIRTHDATE: [birth year] normal. CMP this morning, BUN 40, creatinine 4.4, potassium was normal, sodium was normal. CT scan of the head without contrast on 10/14/2018 was noted without any acute intracranial abnormalities. The patient's CT scan of the abdomen and pelvis, which was completed this morning, reported from the radiologist report as evidence of bilateral basilar area of infiltration cannot be excluded. Status post thoracic abdominal aortic aneurysm repair was noted with abdominal aortic aneurysm as 5.8 x 5.8 cm in size. Atrophy of bilateral kidneys noted with multiple exophytic soft tissue density in both kidneys, may represent hemorrhage, proteinaceous cyst, and renal masses could not be excluded; further assessment with MRI was advised. Had chronic diverticulosis. There was no visible pleural fluid. Chest x-ray that was done on this admission was personally reviewed as well, shows dialysis catheter in place, basilar area of infiltration, greater on the left than the right side. The thoracic aortic endovascular graft was noted in place. IMPRESSION: 1. The patient has been currently admitted to the hospital, noted with acute on chronic hypercapnic hypoxemic respiratory failure with a pH today noted 7.28, pCO2 of 60.9%, pO2 77.3. 2. Acute exacerbation of chronic obstructive pulmonary disease as well. 3. The patient with possibility of acute exacerbation of pneumonia, etiology of gram-positive or gram-negative organism to be considered and treated with history of end-stage renal failure as well as recent hospitalization more than 3 days in the last 30 days, the patient was discharged home yesterday. 4. History of aneurysm of the abdomen and also thoracic aortic aneurysm repair in the past. 5. The patient with history of past heavy nicotine use as well. 6. End-stage renal failure, on regular hemodialysis. PLAN OF MANAGEMENT: Bronchodilator will be continued. Titrate oxygen supplementation to maintain pulse ox 92% or greater, use of BiPAP in case of worsening of respiratory failure. Antibiotic administration as IV vancomycin dosed per kidney function as well as IV Zosyn based on kidney functions as well. Bronchodilators to be continued. Solu-Medrol will be added to the treatment as well. BiPAP is ordered to be used in case of worsening of respiratory failure. Repeat arterial blood gases in the morning. Monitor culture results of blood and others. Other supportive therapy, plan of management and care as well. Additional treatment changes will be ordered based on progression of the illness. Chest x-ray for intermittent monitor for reassessment of progression of the pulmonary infiltration and pneumonia. Thank you for allowing me to participate in the care of this patient. [place], [place] REPORT OF CONSULTATION NAME: PRESTON TOLBERT UNIT #: [id number] ROOM: [facility] DOCTOR: CLAIRE SHARPE MD BIRTHDATE: [birth year] CLAIRE BARCENAS MD CM:CONSTR:REPORT OF CONSULTATION 1657 10/15/18 0359 interface
[~2018-10-14 06:52] MED LIST changes: +VITAMIN D5000 UNI1 PO
--- NOTE | 2018-10-14 07:17 | NUR ---
PT REPORT ACCEPTED. POX 86% ON 15L NRBM. ZOFRAN FRO NAUSEA. ALERT AND ORIENTED. SKIN PINK, WARM AND DRY. DENIES OTHER COMPLAINTS AT THIS TIME. VITALS IN NORMAL LIMITS AND STABLE SINCE ARRIVAL. NO WOUNDS FOUND ON ASSESSMENT.
[2018-10-14 07:25] LABS: ABG BASE EXCESS 0.3 mmol/L (-2.0-2.0); ABG HCO3 27.7 mmol/l (22-26); ABG O2 SATURATION 93.2 % (95-97); ARTERIAL BLOOD GAS PCO2 60.9 mmHg (35-45); ARTERIAL BLOOD GAS PH 7.282 (7.35-7.45); ARTERIAL BLOOD GAS PO2 77.3 mmHg (80-90)
--- NOTE | 2018-10-14 07:30 | NUR ---
ADMISSION ORDER PLACED. AWAITING ROOM ASSIGNMENT.
--- NOTE | 2018-10-14 07:31 | NUR ---
PT DECLINE CATHETER SPECIMEN FOR URINE, STATES HE WILL TELL ME WHEN HE NEEDS TO URINATE.
[2018-10-14 07:32] LABS: BASO % 0.3 % (0.0-1.0); EOS # 0.1 10*3/uL (0.0-0.4); EOS % 0.6 % (1.0-4.0); HEMOGLOBIN 13.6 g/dl (14.0-18.0); LYMPH # 0.5 10*3/uL (1.3-4.4); LYMPH % 4.4 % (27.0-41.0); MEAN CELL VOLUME 96.7 fl (80.0-94.0); MEAN CORPUSCULAR HGB 29.8 pg (27.0-31.0); MEAN CORPUSCULAR HGB CONC 30.8 g/dl (33.0-37.0); MEAN PLATELET VOLUME 10.1 fl (9.6-12.3); MONO # 0.5 10*3/uL (0.1-1.0); MONO % 4.4 % (3.0-9.0); NEUT # 10.4 10*3/uL (2.3-7.9); NEUT % 89.8 % (47.0-73.0); RED BLOOD COUNT 4.56 10*6/uL (4.50-5.90); RED CELL DISTRI WIDTH 14.3 % (0-14.5); WHITE BLOOD COUNT 11.6 10*3/uL (4.8-10.8)
[2018-10-14 07:42] LABS: ACT PARTIAL THROMBO TIME 26.3 SECONDS (20.8-31.5)
[2018-10-14 07:43] LABS: HEMATOCRIT 44.1 % (42.0-52.0); PLATELET COUNT AUTOMATED 150 10*3/uL (130-400)
[2018-10-14 07:50] LABS: ALBUMIN 3.2 gm/dl (3.1-4.5); ALKALINE PHOSPHATASE 110 U/L (45-117); CHLORIDE 98 mmol/L (98-107); CREATININE 4.14 mg/dL (0.70-1.30); POTASSIUM 4.1 mmol/L (3.5-5.1); SGOT/AST 26 IU/L (3-35); SGPT/ALT 28 U/L (12-78); SODIUM 140 mmol/L (136-145); TOTAL PROTEIN 6.9 gm/dL (6.4-8.2)
[2018-10-14 07:51] LABS: BUN 40 mg/dl (7-24); TROPONIN I < 0.015 ng/ml (<0.045)
--- NOTE | 2018-10-14 08:10 | NUR ---
POX IMPROVES TO A HIGH OF 98% ON 50% VENTURI MASK WHEN THE PROBE IS PLACED ON PT'S LEFT EAR. WHEEZES WORSENING, NEW ORDER FOR AEROSOL [place] PENDING.
--- NOTE | 2018-10-14 08:29 | NUR ---
VENTURIA DECREASED TO 40% BY RESPIRATORY, POX 94% ON LEFT EAR. NO FURTHER COMPLAINTS. VITALS STABLE AND WITHIN NORMAL LIMITS. AWAITING ROOM ASSIGNMENT FOR ADMISSION.
--- NOTE | 2018-10-14 08:45 | NUR ---
A 82, admitted to ICCU, under the services of JAMSHID Graff DO with a diagnosis of pneumonia. Chief complaint is fell at home, pushed life line for EMS, was found unresponsive at home in emesis and feces per EMS. Patient arrived via stretcher from ER. Monitor applied. Initial assessment completed. Vital signs taken and recorded. DR. Whittaker was present on pt arrival and orders were recieved. Orders received. See assessment for past medical history, medications and allergies. Patient and/or family oriented to unit. [facility] ICCU visitation policy reviewed. Clothing/patient valuable form completed. pt. voiced concern over his jeans location. ER was called after researching arrival , per. ER Yoan. Jeans were left at home. House dubon was located in ER and returned to Patient. Brother Anthony was notified of pt. admission and spoke with pt. PETROS SORENSEN
--- NOTE | 2018-10-14 09:23 | NUR ---
AFTER PT EXPRESSED CONCERN FOR HIS WALLET AND DASH, I CALLED [facility] TO DETERMINE THEIR LOCATION. EMS STATES THEY FOUND PT COVERED IN FECES, URINE AND VOMIT AND DISROBED ADOLFO AT HIS HOME AND LEFT HIS CLOTHING THERE. POLICE SECURED HIS FRONT DOOR AND HIS DOOR KEYS WERE JUST FOUND TAPED TO A COMPUTER MONITOR IN HIS E.D. EXAM ROOM. I HAVE LABLED AND TUBED THESE KEYS TO [facility] AND PROVIDE NURSE REPORT TO PETROS SORENSEN ABOUT ALL THIS INFORMATION.
--- NOTE | 2018-10-14 09:45 | NUR ---
Get Rider and Burak were notified of consult. Brother Anthony was notified of admission and spoke w/ pt. [facility] placement for re-hab was discussed and pt. was agreeable, Stating that he can't go back to his appartment alone.
--- NOTE | 2018-10-14 16:11 | NUR ---
Dialysis complete and supper was ordered.
--- NOTE | 2018-10-14 20:00 | NUR ---
PT COMBATIVE AND ATTEMPTING TO HIT NURSE AND RESP THERPIST. PT NOT WANTING LAB WORK DONE. ATTEMPTED TO CALM PT DOWN BUT INEFFECTIVE.
[2018-10-14 20:37] LABS: ABG BASE EXCESS 4.9 mmol/L (-2.0-2.0); ABG HCO3 30.1 mmol/l (22-26); ABG O2 SATURATION 98.2 % (95-97); ARTERIAL BLOOD GAS PCO2 48.6 mmHg (35-45); ARTERIAL BLOOD GAS PH 7.407 (7.35-7.45)
--- NOTE | 2018-10-14 22:00 | NUR ---
PT REFUSED MEDS. PULLED BIPAP MASK OFF AND WAS PLACED BACK ON. EXPLAINED TO PT THAT BIPAP WAS NEEDED TO HELP WITH HIS BREATHING. AFTER SEVERAL ATTEMPTS AND EXPLANATIONS FOR NEED FOR BIPAP PT FINALLY LEFT IT ON.
--- NOTE | 2018-10-14 22:20 | NUR ---
DR LOPEZ NOTIFED THAT PT REFUSED MEDS AND WAS COMBATIVE AT TIMES.
[2018-10-15] VITALS: BP 115/55
[2018-10-15 04:00] VITALS: BP 120/63
[2018-10-15 05:39] LABS: ACT PARTIAL THROMBO TIME 34.2 SECONDS (20.8-31.5); INTERNATIONAL NORM RATIO 1.1 (2.0-3.5); MEAN CELL VOLUME 95.8 fl (80.0-94.0); MEAN CORPUSCULAR HGB 29.9 pg (27.0-31.0); MEAN CORPUSCULAR HGB CONC 31.2 g/dl (33.0-37.0); MEAN PLATELET VOLUME 11.1 fl (9.6-12.3); RED BLOOD COUNT 3.81 10*6/uL (4.50-5.90); RED CELL DISTRI WIDTH 14.3 % (0-14.5); WHITE BLOOD COUNT 8.8 10*3/uL (4.8-10.8)
[2018-10-15 05:45] LABS: ALBUMIN 2.8 gm/dl (3.1-4.5); CREATININE 3.11 mg/dL (0.70-1.30); PHOSPHOROUS 3.8 mg/dL (2.5-4.9); POTASSIUM 3.6 mmol/L (3.5-5.1); TOTAL PROTEIN 6.3 gm/dL (6.4-8.2)
[2018-10-15 06:06] LABS: HEMATOCRIT 36.5 % (42.0-52.0); HEMOGLOBIN 11.4 g/dl (14.0-18.0); PLATELET COUNT AUTOMATED 100 10*3/uL (130-400)
[2018-10-15 06:30] LABS: PLATELET SUFFICIENCY LOW (NORMAL); TOTAL CELLS COUNTED 100 #CELLS
[2018-10-15 08:00] VITALS: BP 116/68
--- NOTE | 2018-10-15 08:47 | NUR ---
Sitting up at bedside for breakfast. States feels much better today. Dr. Whittaker in to [facility]. [place] [facility] [place]
--- NOTE | 2018-10-15 11:00 | NUR ---
REPORT WAS RECIEVED FROM MEHREEN RIVERA.
[2018-10-15 12:00] VITALS: BP 119/62
--- NOTE | 2018-10-15 12:25 | NUR ---
Assisted up to [facility] for clear mucoid stool. Taking lunch fairly well.
[2018-10-15 16:00] VITALS: BP 113/41
--- NOTE | 2018-10-15 19:30 | NUR ---
REPORT RECEIVED FROM ICU NURSE GIL. ASSUMED PATIENT CARE AT THIS TIME. PATIENT IS ALERT & ORIENTEDx3. ON 4LNC, BIPAP AT BEDSIDE. DENIES CP/PRESSURE, SHORTNESS OF BREATH. WILL MONITOR.
[2018-10-15 20:00] VITALS: BP 144/78; BP 146/79
[2018-10-16] VITALS: BP 109/48
--- NOTE | 2018-10-16 07:25 | NUR ---
BEDSIDE REPORT OBTAINED FROM YOGESH NORIEGA. PATIENT APPEARS TO BE ASLEEP, EYES CLOSED. NO DISTRESS NOTED, RESP ARE ERND ON O2 4LPM NC IN PLACE. BED IS LOCKED IN LOWEST POSITION, ALARM MAINTAINED. CALL LIGHT LEFT WITHIN REACH.
[2018-10-16 08:00] VITALS: BP 128/78
--- NOTE | 2018-10-16 08:00 | NUR ---
PHYSICAL THERAPY Nursing screen noted. PT orders also recieved. Thank you. Pilar Portillo,PT
--- NOTE | 2018-10-16 08:19 | NUR ---
Nursing screen and Occupatioanl Therapy referral received. Thank you. Donna Guerrier OTR/l
--- NOTE | 2018-10-16 09:30 | NUR ---
PHYSICAL THERAPY PAtient evaluated in 5, full evaluation to follow. Continue with PT as per plan of care with fall and 02 precautions. MAy require to SNF. PAient is moderate complexity via chart review, tests and evaluation: 15685. Thank you for this referral. Pilar Medina,PT
--- NOTE | 2018-10-16 10:44 | NUR ---
Occupational Therapy evaluation completed on 5 with full eval to follow. Precautions include fall risk; bed alarm, dialysis shunt, impaire ADls, impaired balance, safety, new wheeled walker use. Patient is moderate complexity level 86421 via chart review, testing and evaluation. Recomemnd OT per pOC and SNF to enable return home alone and indep. Donna Guerrier OTR/l
[2018-10-16 12:00] VITALS: BP 153/59
--- NOTE | 2018-10-16 12:19 | NUR ---
Patient requested a referral to [facility] in [place]. Contacted facility and faxed referral. waiting on review/acceptance.
--- NOTE | 2018-10-16 12:36 | NUR ---
Eating Disorder Specialist in to talk to patient. Patient states lives at HOME with ALONE. There are NO steps in the home. Physician: [facility] [place]: [place] Home health services: NONE Patient's level of ADLs: MODERATE ASSIST Patient has working utilities: YES DME: OXYGEN, PORT [facility], WALKER Follow-up physician's appointment after d/c: WILL BE MADE BY HOSPITALIST NURSE DIRECTOR ON DISCHARGE Does patient want to access PORTAL?: NO Discharge plan PT STATES HE LIVES ALONE AT HOME, WAS RECENTLY DISCHARGE AND FELL AT HOME AFTER BECOMING SICK AND VOMITING. TALKED WITH PT ABOUT SKILLED STAY LAST ADMISSION AND HE REFUSED, NOW STATES I HAVE TO DO SOMETHING I CAN NOT GO BACK HOME LIKE THIS. PT INSURANCE WILL COVER [facility] AND HE IS AGREEABLE TO GO LONG THEY CAN GET HIM TO [facility] FOR DIALYSIS [facility] AND [facility]. [facility] INFORMED AND WILL FAX REFERRAL TO [facility]. WILL CONTINUE TO FOLLOW.. CATALINA RIVERA
--- NOTE | 2018-10-16 12:40 | NUR ---
PATIENT SENT TO DIALYSIS ROOM.
--- NOTE | 2018-10-16 13:02 | NUR ---
OT NOTE Attempted to see pt this P.M. for OT session and upon arrival pt was out of his room for dialysis. Will continue with POC as able. SYLWIA Perry/Neha
--- NOTE | 2018-10-16 13:23 | NUR ---
PHYSICAL THERAPY Patient was out of his room this pm for dialysis treatment and unavailable at this time for therapy. Will continue per POC as able. Troy Gomez, SINGING TELEGRAM PERFORMER
--- NOTE | 2018-10-16 15:47 | NUR ---
OT NOTE PATIENT IN DIALYSIS THIS PM. WILL TRY BACK LATER DATE.
[2018-10-16 16:00] VITALS: BP 144/55
--- NOTE | 2018-10-16 16:10 | NUR ---
PATIENT RETURNED TO FLOOR FROM DIALYSIS ROOM. INFORMED FROM DIALYSIS NURSE THAT 1/2 KILO WAS TAKEN OFF.
--- NOTE | 2018-10-16 16:27 | NUR ---
URINE SPECIMEN SENT TO LAB
[2018-10-16 16:35] LABS: BILIRUBIN NEGATIVE (NEGATIVE); BLOOD NEGATIVE (NEGATIVE); CLARITY SL CLOUDY (CLEAR); COLOR YELLOW (YELLOW); GLUCOSE NEGATIVE (NEGATIVE); KETONE TRACE (NEGATIVE); LEUKO ESTERASE NEGATIVE (NEGATIVE); NITRITE NEGATIVE (NEGATIVE); SPECIFIC GRAVITY 1.025 (1.005-1.030); UROBILINOGEN 0.2 E.U./dl (0.2-1.0)
[2018-10-16 17:06] LABS: BACTERIA 4+
--- NOTE | 2018-10-16 19:15 | NUR ---
PT SLEEPING IN BED DURING BEDSIDE SHIFT REPORT. BED IN LOW POSITION W/WHEELS LOCKED AND ALARM ON. CALL LIGHT IN REACH.
[2018-10-16 20:00] VITALS: BP 138/71
--- NOTE | 2018-10-16 20:00 | NUR ---
PT C/O PRODUCTIVE FREQ COUGH. MEDICATED W/ 5ML ROBITUSSIN AC PO. PT RESTING QUIETLY IN BED TALKING ON PHONE. BED ALARM ON W/CALL LIGHT IN REACH.
--- NOTE | 2018-10-16 21:00 | NUR ---
PT STATES THAT COUGH MED WAS EFFECTIVE.
--- NOTE | 2018-10-16 23:28 | NUR ---
PT REFUSING TO WEAR BIPAP
[2018-10-17] VITALS: BP 121/91
--- NOTE | 2018-10-17 01:07 | NUR ---
24 HR chart check completed.
[2018-10-17 06:20] LABS: HEMATOCRIT 36.7 % (42.0-52.0); HEMOGLOBIN 11.2 g/dl (14.0-18.0); MEAN CELL VOLUME 97.3 fl (80.0-94.0); MEAN CORPUSCULAR HGB 29.7 pg (27.0-31.0); MEAN CORPUSCULAR HGB CONC 30.5 g/dl (33.0-37.0); MEAN PLATELET VOLUME 10.3 fl (9.6-12.3); PLATELET COUNT AUTOMATED 152 10*3/uL (130-400); RED BLOOD COUNT 3.77 10*6/uL (4.50-5.90); RED CELL DISTRI WIDTH 14.3 % (0-14.5); WHITE BLOOD COUNT 7.1 10*3/uL (4.8-10.8)
[2018-10-17 06:45] LABS: PLATELET SUFFICIENCY NORMAL (NORMAL); TOTAL CELLS COUNTED 100 #CELLS
[2018-10-17 06:50] LABS: ALBUMIN 2.5 gm/dl (3.1-4.5); CREATININE 3.26 mg/dL (0.70-1.30); PHOSPHOROUS 3.2 mg/dL (2.5-4.9)
[2018-10-17 08:00] VITALS: BP 112/56
--- NOTE | 2018-10-17 08:01 | NUR ---
Faxed PT and OT evals to [place] for precert, waiting for auth.
--- NOTE | 2018-10-17 10:06 | NUR ---
Received call from patients herlinda Gamez regarding [facility]. Patient thought he was going to [facility] in [place], I corrected it is the [facility] in [place] and none of the local facilities here are in network with his insurance. She was fine with [facility]; her cell phone is [phone]
--- NOTE | 2018-10-17 10:43 | NUR ---
Shift chart check completed.
[2018-10-17 12:00] VITALS: BP 141/62
--- NOTE | 2018-10-17 14:10 | NUR ---
PHYSICAL THERAPY Patient seen this pm 1:1 for therapy visit and was sitting up in bedside chair upon therapist arrival. Patient voices no c/o's pain and presented with continuous O2-3.5L via NC. Patient performed seated B LE therex, all planes x 10 reps each prior to transfering sit to stand with Min A x 1. Patient ambulated 60'x 2, CGA/Min, wh walker, demonstrating increased velocity with gait pattern. Patient needed v/c to slow down, especially during 180 degree turns to improve safety / navigation. Patient returned to bedside chair and remained with call light, tray table, telephone and body alarm for safety. Will continue per POC as tolerated, total treatment time 17 minutes. Troy Gomez, PUNCH FINISHER
--- NOTE | 2018-10-17 14:18 | NUR ---
OT NOTE Pt was seen this A.m. 1:1 for 18 minute OT session. Upon arrival pt was sitting upright in recliner , pt identified by name and . Pt had no complaints at this time other than generalized weakness. Pt presented with continous 3.5L-O2 via NC which he remained on throughout entire session. Pt completed STS transfer from chair level with Cameron and education for proper hand placement for increased I and improved technique. Pt completed functional mobility around the room with CGA and use of w/w for UE support. Pt required constant education for walker safety due to have several episodes of LOB due to poor safety while turning, being impuslive at times, and staying away from the walker. Challenged pt's dynamic stanidng balance without UE support to simulate sink side grooming and pt had LOB with no UE support that required modA to correct. Pt returned to recliner where he was left sitting upright with call light in hand, tray table in place, and body alarm activated for safety. Continue with rec D/C plan to SNF. JAMEY Perry
--- NOTE | 2018-10-17 15:30 | NUR ---
Patient has received auth to go to [facility]; Spoke with Dr Fontanez, she stated since patient did not have dialysis today, she would like him to stay here, get dialysis tuesday and be discharged to the [facility]. Auth should be good for 48 hours. Notified Tarry at the [facility], will follow
[2018-10-17 16:00] VITALS: BP 143/39
[2018-10-17 20:00] VITALS: BP 160/57
[2018-10-18] VITALS: BP 149/72
--- NOTE | 2018-10-18 10:20 | NUR ---
PHYSICAL THERAPY Patient was out of room this am for therapy visit receiving his dialysis treatment and unavailable for therapy at this time. Will continue this pm as able. Troy Gomez, MEDIA DIRECTOR
[2018-10-18 12:00] VITALS: BP 134/79
--- NOTE | 2018-10-18 12:41 | NUR ---
PHYSICAL THERAPY Patient seen this pm 1:1 for therapy visit and was siiting up EOB following patient care, upon therapist arrival. Patient very [place] and reports feeling a little generalized weakness since returning from am dialysis. Patient transfers sit to stand Min/CGA and ambulates with use of wh walker, CGA/Min, 65'x 1, demonstrating very slow christa with increased fatigue due c/o LE muscle weakness. Patieint also demonstrates increased "slouched" standing posture upon return to bedside chair secondary to fatigue and remained in chair with call light, tray table, telephone and body alarm for safety as lunch arrived. Will continue per POC as tolerated, total treatment time 16 minutes. Troy Gomez, MACHINIST FIRST CLASS
--- NOTE | 2018-10-18 13:45 | NUR ---
OT NOTE Pt was seen this P.M. 1:1 for 15 minute OT session. Upon arrival pt was sitting upright in recliner and identified by name and . Pt had no complaints at this time other than generalized fatigue. Pt completed sit to stand transfer from chair level with Cameron and education for proper hand placement. Functional mobility completed into the bathroom with Cameron and use of w/w for UE support. There he transferred on/off standard commode with Cameron. While in the bathroom pt had LOB with turning that required modA to correct. Educated pt on safe turning technique for increased I and enhanced safety. Pt then stood sink side while washing his hands with CGA. Pt returned to recliner where he was left sitting upright in recliner with call light in hand, tray table in place, and body alarm activated for safety. Continue with rec D/C plan to SNF. SYLWIA Perry/Neha
--- NOTE | 2018-10-18 13:46 | NUR ---
PT FOR DISCHARGE TOMORROW TO [facility] IN [facility].
--- NOTE | 2018-10-18 15:45 | NUR ---
OCCUPATIONAL THERAPY CO-SIGN I approve of the Occupational Therapy notes written above. GENI SHELTON OTR/Neha
[2018-10-18 16:00] VITALS: BP 142/68
--- NOTE | 2018-10-18 18:27 | NUR ---
PT C/O CLEAR DISCHARGE FROM RECTUM. NOTED IN HAT IN TOILET. DR. LOPEZ NOTIFIED.
[2018-10-18 20:00] VITALS: BP 158/68
--- NOTE | 2018-10-18 23:41 | NUR ---
PT REFUSED TO WEAR BIPAP
[2018-10-19] VITALS: BP 153/65
[2018-10-19 08:00] VITALS: BP 130/56
--- NOTE | 2018-10-19 08:00 | NUR ---
VITAL SIGNS STABLE. PULSE 50 REGULAR AND STRONG. PATIENT IS A&O X3. EQUAL BILATERAL CARCASS WASHER. HEART SOUNDS NORMAL. EXPIRATORY WHEEZE NOTED ALL NAVARRETE. BS X4, ABDOMEND SOFT, NON TENDER, NON DISTENDED. LAST BM 10/15, HAS FROTHY DRAINAGE FROM RECTUM. SKIN IS PINK, WARM AND DRY, SKIN IS INTACT. NO EDEMA NOTED. CAPILLARY REFILL <3 SECONDS IN ALL EXTREMITIES. NO PAIN NOTED. WILL CONTINUE TO MONITOR. GAYATHRI DOBBINSCC
--- NOTE | 2018-10-19 10:02 | NUR ---
BISACODYL 5MG GIVEN PO FOR CONSTIPATION. WILL CONTINUE TO MONITOR. GAYATHRI RAMIREZ
--- NOTE | 2018-10-19 10:23 | NUR ---
PHYSICAL THERAPY Patient seen 1:1 this AM for PT. Patient ID by name and . Patient sitting in bedside chair with alarms on. Patient c/o pain in B knees 7-05/12 with WB. Gait training in room wiht fww and min A/CGA 70' x2, O2 on. Patient required cues for walker approximation and posture to decrease fall risk, patient c/o "weakness" in LEs but no bouts of buckling noted. Patient completed seated therex with cues for speed/form including LAQ, marches, ankle pumps, hip abd. Patient required CGA/min A and cues for proper transfer technique for STS including hand placement, push off, and forward WS. Continue per PT POC as toelrated. Treatment time 19min. Tina Lovell, QA AUTOMATION ARCHITECT
[2018-10-19] MEDS ORDERED: AUGMENTIN 500500 MG PO (11:37)
[2018-10-19] MEDS ORDERED: PREDNISONE10 MG PO (11:37)
--- NOTE | 2018-10-19 11:56 | NUR ---
PT CAN BE DISCHARGED TO [place] WHEN MEDICALLY STABLE.
[2018-10-19 12:06] VITALS: BP 142/60
--- NOTE | 2018-10-19 12:33 | NUR ---
patient discharged to the [facility] [place]. Transportation scheduled for 3:30 with [facility] ([facility] will not take transport to [place] today). NH, nursing and brother Don all notified.
--- NOTE | 2018-10-19 12:45 | NUR ---
REASSESED DULCOLAX, PATIENT DID NOT HAVE BM. GAYATHRI RAMIREZ
--- NOTE | 2018-10-19 13:15 | NUR ---
REPORT GIVEN TO NURSE MONTAÑO AT [facility]. GAYATHRI GRANDE SPCC
[2018-10-19 16:00] VITALS: BP 135/63
--- NOTE | 2018-10-19 16:16 | NUR ---
PHYSICAL THERAPY CO-SIGN I approve of the Phyical Therapy notes written above. KARLO TARIQ PT
--- NOTE | 2018-10-19 17:30 | NUR ---
PT TRANSPORTED TO [facility] AT THIS TIME VIA AMBULANCE. DICHARGE PACKET GIVEN TO EMT.
--- NOTE | 2018-10-30 08:12 | NUR ---
PHYSICAL THERAPY CO-SIGN I approve of the Phyical Therapy notes written above. KARLO TARIQ PT
[2018-11-06] MEDS ORDERED: ASPIRIN CHEWABL81 MG PO (16:13)
[2018-11-06] MEDS ORDERED: Ipratropium Brom3 ML INH (16:14)
[2018-11-06] MEDS ORDERED: MIRALAX17 GM PO (16:16)
[2018-11-06] MEDS ORDERED: LEVOFLOXACIN500 MG PO (16:16)
[2018-11-06] MEDS ORDERED: RENVELA800 MG PO (16:17)
[2018-11-06] MEDS ORDERED: RANITIDINE75 MG PO (16:17)
[2018-11-06] MEDS ORDERED: SENOKOT-S TABL1 EACH PO (16:18)
[2018-11-06] MEDS ORDERED: TYLENOL325 M1 PO (16:19)
[2018-11-07] MEDS ORDERED: FEROSUL325 MG PO (04:50)
[2018-11-07] MEDS ORDERED: HYDRALAZINE HYD50 MG PO (04:51)
[2018-11-07] MEDS ORDERED: PEPCID20 MG PO (04:56)
[2018-11-07] MEDS ORDERED: OMEPRAZOLE20 M2 PO (10:24)
[2018-11-07] MEDS ORDERED: OCUVITE WITH L1 EACH PO (10:26)
[2018-11-07] MEDS ORDERED: RENO CAPS SOFTGE1 MG PO (10:27)
[2018-11-07] MEDS ORDERED: Ipratropium Brom3 ML INH (10:30)
[2018-11-11] MEDS ORDERED: BUMETANIDE1 MG PO (11:26)
[2018-11-11] MEDS ORDERED: NEURONTIN100 MG PO (11:26)
[2018-11-11] MEDS ORDERED: RENVELA800 MG PO (11:27)
[2018-11-11] MEDS ORDERED: RENO CAPS SOFTGE1 MG PO (11:27)
== END 2018-10-19 17:30 | disposition other institution (70) | DRG 871 ==
LOC: ED 06:52 → EDHOLD 07:46 → 5E 07:46 → ICCU 08:46 → 5E 10-15 19:32
PROVIDERS: Emergency Medicine; Internal Medicine Critical Care Medicine; Student in an Organized Health Care Education/Training Program; ADMIT Internal Medicine
PROC: 5A1D70Z Performance of Urinary Filtration, Intermittent, Less than 6 Hours Per Day (ICD-10-PCS; 2018-10-14)
PROC: 5A09357 Assistance with Respiratory Ventilation, Less than 24 Consecutive Hours, Continuous Positive Airway Pressure (ICD-10-PCS; principal; 2018-10-15)
DX: A41.9 Sepsis, unspecified organism (principal); J69.0 Pneumonitis due to inhalation of food and vomit; N18.6 End stage renal disease; J96.21 Acute and chronic respiratory failure with hypoxia; J96.22 Acute and chronic respiratory failure with hypercapnia; E87.2 Acidosis; J44.1 Chronic obstructive pulmonary disease with (acute) exacerbation; I12.0 Hypertensive chronic kidney disease with stage 5 chronic kidney disease or end stage renal disease; J44.0 Chronic obstructive pulmonary disease with (acute) lower respiratory infection; R65.20 Severe sepsis without septic shock; Z96.1 Presence of intraocular lens; D53.9 Nutritional anemia, unspecified; N40.0 Benign prostatic hyperplasia without lower urinary tract symptoms; E78.5 Hyperlipidemia, unspecified; J20.9 Acute bronchitis, unspecified; I25.10 Atherosclerotic heart disease of native coronary artery without angina pectoris; R91.1 Solitary pulmonary nodule; I48.2 Chronic atrial fibrillation; W18.30XA Fall on same level, unspecified, initial encounter; Y99.8 Other external cause status; Y93.89 Activity, other specified; Z99.81 Dependence on supplemental oxygen; Z95.5 Presence of coronary angioplasty implant and graft; Z85.528 Personal history of other malignant neoplasm of kidney; I25.2 Old myocardial infarction; Z90.49 Acquired absence of other specified parts of digestive tract; Z99.2 Dependence on renal dialysis; Z90.5 Acquired absence of kidney; Z87.891 Personal history of nicotine dependence; Z82.49 Family history of ischemic heart disease and other diseases of the circulatory system; Z80.9 Family history of malignant neoplasm, unspecified; Y92.091 Bathroom in other non-institutional residence as the place of occurrence of the external cause; Z79.899 Other long term (current) drug therapy; Z79.02 Long term (current) use of antithrombotics/antiplatelets; Z98.42 Cataract extraction status, left eye; Z98.41 Cataract extraction status, right eye

== ENCOUNTER → 2019-07-10 | Outpatient (CLI) | payer MEDICARE ==
[~2019-07-10] MED LIST changes: +ASPIRIN CHEWABL81 MG PO; +AUGMENTIN 500500 MG PO; +FEROSUL325 MG PO; +LEVOFLOXACIN500 MG PO; +MIRALAX17 GM PO; +RANITIDINE75 MG PO; +SENOKOT-S TABL1 EACH PO; +TYLENOL325 M1 PO
[2019-07-10 11:08] LABS: CREATININE 7.19 mg/dL (0.70-1.30)
== END | disposition home or self-care (01) ==
LOC: CT 07-04 10:00 → LAB 10:30 → CT 10:30
PROVIDERS: Radiology Diagnostic Radiology
DX: I71.4 Abdominal aortic aneurysm, without rupture (principal); N28.1 Cyst of kidney, acquired; Z90.49 Acquired absence of other specified parts of digestive tract; Z95.828 Presence of other vascular implants and grafts

== ENCOUNTER 2019-10-15 10:29 | Emergency (ER) | payer MEDICARE ==
[~2019-10-15] VITALS: Ht 170.1 cm; Wt 72.6 kg
== END 2019-10-15 11:11 | disposition home or self-care (01) ==
LOC: ED 10:29
DX: Z48.01 Encounter for change or removal of surgical wound dressing (principal); I10 Essential (primary) hypertension; K21.9 Gastro-esophageal reflux disease without esophagitis; E78.00 Pure hypercholesterolemia, unspecified; Z79.899 Other long term (current) drug therapy; Z79.4 Long term (current) use of insulin; Z87.891 Personal history of nicotine dependence

== ENCOUNTER 2019-11-19 09:08 | Inpatient (IN) | payer MEDICARE ==
[~2019-11-19] VITALS: Ht 170.1 cm; Wt 72.2 kg
[2019-11-19 09:12] VITALS: BP 171/79
[2019-11-19 10:13] LABS: BASO # 0.1 10*3/uL (0.0-0.1); BASO % 0.7 % (0.0-1.0); EOS # 0.3 10*3/uL (0.0-0.4); EOS % 4.4 % (1.0-4.0); HEMATOCRIT 30.3 % (42.0-52.0); HEMOGLOBIN 9.5 g/dl (14.0-18.0); LYMPH # 1.3 10*3/uL (1.3-4.4); MEAN CELL VOLUME 103.4 fl (80.0-94.0); MEAN CORPUSCULAR HGB 32.4 pg (27.0-31.0); MEAN CORPUSCULAR HGB CONC 31.4 g/dl (33.0-37.0); MEAN PLATELET VOLUME 9.8 fl (9.6-12.3); MONO # 0.6 10*3/uL (0.1-1.0); MONO % 8.6 % (3.0-9.0); PLATELET COUNT AUTOMATED 151 10*3/uL (130-400); RED BLOOD COUNT 2.93 10*6/uL (4.50-5.90); RED CELL DISTRI WIDTH 14.6 % (0-14.5); WHITE BLOOD COUNT 7.3 10*3/uL (4.8-10.8)
[2019-11-19 10:20] VITALS: BP 170/74
[2019-11-19 10:23] LABS: ACT PARTIAL THROMBO TIME 28.3 SECONDS (20.0-32.1)
[2019-11-19 10:30] LABS: ALBUMIN 3.1 gm/dl (3.1-4.5); POTASSIUM 4.4 mmol/L (3.5-5.1); TOTAL PROTEIN 6.3 gm/dL (6.4-8.2); TROPONIN I 0.028 ng/ml (<0.045)
[2019-11-19] MEDS ORDERED: IPRATROPIUM BRO15 ML NAS (11:32)
[2019-11-19 11:55] VITALS: BP 182/93
--- NOTE | 2019-11-19 11:55 | NUR ---
A 83, admitted to , under the services of JOSE Villanueva DO with a diagnosis of COPD EXACERBATION, DIZZINESS. Chief complaint is SHORTNESS OF BREATH. Patient arrived via stretcher from ER. Monitor applied. Initial assessment completed. Vital signs taken and recorded. JOSE VILLANUEVA DO notified of admission to the unit. Orders received. See assessment for past medical history, medications and allergies. Patient and/or family oriented to unit. [address] visitation policy reviewed. Clothing/patient valuable form completed. NORBERTO LEACH
--- NOTE | 2019-11-19 12:42 | NUR ---
DIALYSIS NURSE LINE CALLED TO REPORT PT'S ADMISSION. SHE STATES SHE WILL TEXT DR CHRISTIE TODAY IS HIS SCHEDULED DIALYSIS DAY.
[2019-11-19] MEDS ORDERED: MIDODRINE HCL5 M1 PO (13:25)
[2019-11-19] MEDS ORDERED: RENAGEL800 M1 PO (13:26)
--- NOTE | 2019-11-19 14:50 | NUR ---
DR CHRISTIE IN TO SEE PT
[2019-11-19 16:00] VITALS: BP 143/82
--- NOTE | 2019-11-19 19:00 | NUR ---
ASSUMED CARE FOR THIS PT AT THIS TIME. PT IN RADIOLOGY AT THIS TIME.
[2019-11-19 20:00] VITALS: BP 136/58
--- NOTE | 2019-11-19 20:00 | NUR ---
PT RETURNED TO FLOOR AT THIS TIME. SITTING ON SIDE OF BED EATING DINNER. CALL LIGHT IN REACH.
[2019-11-20] VITALS: BP 95/26
[2019-11-20 01:03] VITALS: BP 112/80
--- NOTE | 2019-11-20 01:28 | NUR ---
24 HR chart check completed.
[2019-11-20 06:09] LABS: HEMATOCRIT 32.1 % (42.0-52.0); HEMOGLOBIN 10.1 g/dl (14.0-18.0); LYMPH # 0.6 10*3/uL (1.3-4.4); LYMPH % 12.2 % (27.0-41.0); MEAN CELL VOLUME 101.6 fl (80.0-94.0); MEAN CORPUSCULAR HGB CONC 31.5 g/dl (33.0-37.0); MEAN PLATELET VOLUME 9.9 fl (9.6-12.3); MONO # 0.1 10*3/uL (0.1-1.0); MONO % 1.8 % (3.0-9.0); NEUT # 3.9 10*3/uL (2.3-7.9); NEUT % 85.8 % (47.0-73.0); PLATELET COUNT AUTOMATED 169 10*3/uL (130-400); RED BLOOD COUNT 3.16 10*6/uL (4.50-5.90); RED CELL DISTRI WIDTH 14.6 % (0-14.5); WHITE BLOOD COUNT 4.5 10*3/uL (4.8-10.8)
[2019-11-20 06:40] LABS: ALBUMIN 3.2 gm/dl (3.1-4.5); POTASSIUM 4.3 mmol/L (3.5-5.1)
[2019-11-20 06:43] LABS: CREATININE 6.59 mg/dL (0.70-1.30); PHOSPHOROUS 5.8 mg/dL (2.5-4.9); TOTAL PROTEIN 6.6 gm/dL (6.4-8.2)
--- NOTE | 2019-11-20 07:45 | NUR ---
PACKAGER AND STRAPPER CALLED WITH A 14 BEAT RUN OF V TACH. STRIP OBTAINED BY THIS NURSE AND Laci BELTRAN NP NOTIFIED. PT ASYMPTOMATIC.
[2019-11-20 08:00] VITALS: BP 140/52
--- NOTE | 2019-11-20 08:00 | NUR ---
DR REVELES PAGED VIA ANSWERING SERVICE, WILL AWAIT RETURN CALL
--- NOTE | 2019-11-20 08:06 | NUR ---
PHYSICAL THERAPY Screen and eval received will follow thank you Zeenat Mcknight PT
--- NOTE | 2019-11-20 09:05 | NUR ---
DR REVELES CALLED UNIT, NOTIFIED OF CONSULT FOR 14 BEAT RUN OF VTACH. ORDERS RECEIVED. HE STATES HE WILL SEE PT.
--- NOTE | 2019-11-20 10:30 | NUR ---
Partition Assembly Machine Operator in to talk to patient. Patient states lives at home alone with his sister and brother checking in on him. There are 0 steps in the home. There is a wheelchair ramp. Physician: Dr. Collni Davidson Pharmacy: [place] or [facility] Home health services: wants [facility] RN/PT Patient's level of ADLs: MINIMAL ASSIST Patient has working utilities: yes DME: cane, walker, O2 @ 3L nc, portable O2 tanks, nebulizer, O2 supplier [facility] Follow-up physician's appointment after d/c: will be made by the hospitalist nurse director upon discharge Does patient want to access PORTAL?: no Discharge plan discussed with patient. He lives in an apartment alone with his sister and brother checking in on him. He is independent in his ADLs and ambulates with a cane or a walker. Discussed short term SNF and he refuses. Discussed home health care services and he is agreeable. When provided with a list of agencies he chose [facility] as he has had them in the past. He is dialysis MWF, his chair time is 10am, and he drives himself. When medically stable he will be discharged to home with the [facility]. He states he will have transportation on discharge just at this time he doesn't know who. MONA MARTINES
[2019-11-20 12:00] VITALS: BP 130/80
[2019-11-20 16:00] VITALS: BP 126/75
--- NOTE | 2019-11-20 18:27 | NUR ---
DR REVELES IN TO SEE PATIENT.
--- NOTE | 2019-11-20 19:00 | NUR ---
ASSUMED CARE FOR THIS PT AT THIS TIME. PT RESTING QUIETLY IN BED W/EYES CLOSED. NO S/S OF DISTRESS NOTED. CALL LIGHT IN REACH.
[2019-11-20 20:00] VITALS: BP 131/63
[2019-11-21] VITALS: BP 148/68
--- NOTE | 2019-11-21 07:51 | NUR ---
Not available for echo.
[2019-11-21] MEDS ORDERED: ZITHROMAX500 MG PO (11:52)
[2019-11-21] MEDS ORDERED: OMNICEF300 MG PO (11:53)
[2019-11-21] MEDS ORDERED: COREG12.5 M1 PO (11:55)
[2019-11-21 12:00] VITALS: BP 133/50
--- NOTE | 2019-11-21 13:43 | NUR ---
New home health referral sent to [facility]
--- NOTE | 2019-11-21 13:58 | NUR ---
PHYSICAL THERAPY Chart reviewed. Approached pt and he is awaiting his dc papers to be filled out. Zoya Blair, PT
--- NOTE | 2019-11-21 14:10 | NUR ---
Patient being discharged. echo cancelled.
--- NOTE | 2019-11-21 15:40 | NUR ---
Discharge instructions reviewed with patient/family. Patient receptive and verbalizes understanding. Follow-up care arranged. Written instructions given to patient/family. NORBERTO LEACH
--- NOTE | 2019-11-21 15:45 | NUR ---
[place] is full with no room until Tuesday. Referral faxed to [facility] as patient has had them in the past also.
--- NOTE | 2019-11-22 14:48 | NUR ---
Received call from Zen at [facility] stating patient was admitted to home health care services due to patient not being homebound.
== END 2019-11-21 15:40 | disposition home or self-care (01) | DRG 190 ==
LOC: ED 09:08 → EDHOLD 11:23 → 4E 11:23
PROVIDERS: Emergency Medicine; Registered Nurse; ADMIT Internal Medicine
PROC: 5A1D70Z Performance of Urinary Filtration, Intermittent, Less than 6 Hours Per Day (ICD-10-PCS; principal; 2019-11-19)
PROC: 5A1D70Z Performance of Urinary Filtration, Intermittent, Less than 6 Hours Per Day (ICD-10-PCS; 2019-11-21)
DX: J44.1 Chronic obstructive pulmonary disease with (acute) exacerbation (principal); N18.6 End stage renal disease; J96.11 Chronic respiratory failure with hypoxia; E44.1 Mild protein-calorie malnutrition; I48.20 Chronic atrial fibrillation, unspecified; I47.2 Ventricular tachycardia; I12.0 Hypertensive chronic kidney disease with stage 5 chronic kidney disease or end stage renal disease; I95.3 Hypotension of hemodialysis; I10 Essential (primary) hypertension; E78.2 Mixed hyperlipidemia; D53.9 Nutritional anemia, unspecified; E66.9 Obesity, unspecified; K21.9 Gastro-esophageal reflux disease without esophagitis; I71.4 Abdominal aortic aneurysm, without rupture; M25.551 Pain in right hip; E83.39 Other disorders of phosphorus metabolism; E83.41 Hypermagnesemia; M16.11 Unilateral primary osteoarthritis, right hip; I25.10 Atherosclerotic heart disease of native coronary artery without angina pectoris; W19.XXXA Unspecified fall, initial encounter; E78.5 Hyperlipidemia, unspecified; Z99.2 Dependence on renal dialysis; Z99.81 Dependence on supplemental oxygen; Z79.899 Other long term (current) drug therapy; Z68.25 Body mass index [BMI] 25.0-25.9, adult; Z79.82 Long term (current) use of aspirin; Z95.5 Presence of coronary angioplasty implant and graft; Z90.49 Acquired absence of other specified parts of digestive tract; Z90.5 Acquired absence of kidney; Z87.891 Personal history of nicotine dependence; Z82.49 Family history of ischemic heart disease and other diseases of the circulatory system; Z80.9 Family history of malignant neoplasm, unspecified; Z85.528 Personal history of other malignant neoplasm of kidney; I25.2 Old myocardial infarction; Z98.49 Cataract extraction status, unspecified eye; Y93.89 Activity, other specified; Y92.098 Other place in other non-institutional residence as the place of occurrence of the external cause; Y99.8 Other external cause status

== ENCOUNTER 2020-06-09 13:44 | Inpatient (IN) | payer MEDICARE ==
[~2020-06-09] VITALS: Ht 170.2 cm; Wt 80.8 kg
[~2020-06-09 13:44] MED LIST changes: +COREG12.5 M1 PO; +IPRATROPIUM BRO15 ML NAS; +MIDODRINE HCL5 M1 PO; +OMNICEF300 MG PO; +RENAGEL800 M1 PO
[2020-06-09 13:46] VITALS: BP 153/83
[2020-06-09 14:22] LABS: BASO # 0.1 10*3/uL (0.0-0.1); BASO % 0.6 % (0.0-1.0); EOS # 0.3 10*3/uL (0.0-0.4); EOS % 3.5 % (1.0-4.0); HEMATOCRIT 33.9 % (42.0-52.0); LYMPH # 1.1 10*3/uL (1.3-4.4); LYMPH % 14.1 % (27.0-41.0); MEAN CELL VOLUME 99.1 fl (80.0-94.0); MEAN CORPUSCULAR HGB 31.3 pg (27.0-31.0); MEAN CORPUSCULAR HGB CONC 31.6 g/dl (33.0-37.0); MEAN PLATELET VOLUME 9.4 fl (9.6-12.3); MONO # 0.6 10*3/uL (0.1-1.0); NEUT # 6.1 10*3/uL (2.3-7.9); NEUT % 74.6 % (47.0-73.0); PLATELET COUNT AUTOMATED 135 10*3/uL (130-400); RED BLOOD COUNT 3.42 10*6/uL (4.50-5.90); RED CELL DISTRI WIDTH 15.2 % (0-14.5); WHITE BLOOD COUNT 8.1 10*3/uL (4.8-10.8)
[2020-06-09 14:33] LABS: ACT PARTIAL THROMBO TIME 28.1 SECONDS (20.0-32.1); INTERNATIONAL NORM RATIO 1.1 (2.0-3.5)
[2020-06-09 14:38] LABS: ALBUMIN 3.1 gm/dl (3.1-4.5); ALKALINE PHOSPHATASE 95 U/L (45-117); BUN 54 mg/dl (7-24); CHLORIDE 102 mmol/L (98-107); CREATININE 9.54 mg/dL (0.70-1.30); LIPASE 162 U/L (73-393); POTASSIUM 4.8 mmol/L (3.5-5.1); SGOT/AST 11 IU/L (3-35); SGPT/ALT 20 U/L (12-78); SODIUM 134 mmol/L (136-145); TOTAL PROTEIN 6.4 gm/dL (6.4-8.2)
[2020-06-09 14:40] LABS: TROPONIN I < 0.015 ng/ml (<0.045)
[2020-06-09 16:13] VITALS: BP 169/69
[2020-06-09 17:16] VITALS: BP 171/67
[2020-06-09] MEDS ORDERED: COREG3.125 MG PO (17:43)
[2020-06-09 20:00] VITALS: BP 123/53; BP 123/535
[2020-06-10] VITALS: BP 121/42
[2020-06-10 07:32] LABS: BASO % 0.4 % (0.0-1.0); EOS # 0.3 10*3/uL (0.0-0.4); EOS % 4.3 % (1.0-4.0); FREE T4 0.86 ng/dl (0.76-1.46); HEMATOCRIT 31.2 % (42.0-52.0); LYMPH % 15.2 % (27.0-41.0); MEAN CELL VOLUME 99.7 fl (80.0-94.0); MEAN CORPUSCULAR HGB 31.6 pg (27.0-31.0); MEAN CORPUSCULAR HGB CONC 31.7 g/dl (33.0-37.0); MONO # 0.6 10*3/uL (0.1-1.0); MONO % 9.1 % (3.0-9.0); NEUT # 4.8 10*3/uL (2.3-7.9); NEUT % 70.9 % (47.0-73.0); PLATELET COUNT AUTOMATED 133 10*3/uL (130-400); POTASSIUM 4.8 mmol/L (3.5-5.1); RED BLOOD COUNT 3.13 10*6/uL (4.50-5.90); RED CELL DISTRI WIDTH 15.4 % (0-14.5); WHITE BLOOD COUNT 6.7 10*3/uL (4.8-10.8)
[2020-06-10 07:37] LABS: ACT PARTIAL THROMBO TIME 28.1 SECONDS (20.0-32.1); INTERNATIONAL NORM RATIO 1.1 (2.0-3.5)
[2020-06-10 07:40] LABS: ALBUMIN 2.7 gm/dl (3.1-4.5); CREATININE 9.79 mg/dL (0.70-1.30); THYROID STIM HORMONE (HS) 2.85 uIU/ml (0.358-4.75); TOTAL PROTEIN 5.8 gm/dL (6.4-8.2)
[2020-06-10 08:00] VITALS: BP 148/50
[2020-06-10 09:48] LABS: VITAMIN D, 25-HYDROXY 73.9 ng/mL (30-100)
[2020-06-10 11:49] VITALS: BP 155/72
[2020-06-10 12:16] LABS: BASO # 0.1 10*3/uL (0.0-0.1); BASO % 0.9 % (0.0-1.0); EOS # 0.3 10*3/uL (0.0-0.4); EOS % 4.3 % (1.0-4.0); HEMATOCRIT 31.8 % (42.0-52.0); LYMPH # 0.9 10*3/uL (1.3-4.4); LYMPH % 14.5 % (27.0-41.0); MEAN CELL VOLUME 100.6 fl (80.0-94.0); MEAN CORPUSCULAR HGB 30.4 pg (27.0-31.0); MEAN CORPUSCULAR HGB CONC 30.2 g/dl (33.0-37.0); MEAN PLATELET VOLUME 9.6 fl (9.6-12.3); MONO # 0.5 10*3/uL (0.1-1.0); MONO % 8.9 % (3.0-9.0); NEUT # 4.2 10*3/uL (2.3-7.9); NEUT % 71.2 % (47.0-73.0); PLATELET COUNT AUTOMATED 133 10*3/uL (130-400); RED BLOOD COUNT 3.16 10*6/uL (4.50-5.90); RED CELL DISTRI WIDTH 15.1 % (0-14.5); WHITE BLOOD COUNT 5.9 10*3/uL (4.8-10.8)
[2020-06-10] MEDS ORDERED: ASPIRIN81 M1 PO (12:25)
[2020-06-10 12:27] LABS: ALBUMIN 2.6 gm/dl (3.1-4.5); CREATININE 9.99 mg/dL (0.70-1.30); POTASSIUM 4.5 mmol/L (3.5-5.1)
[2020-06-10] MEDS ORDERED: PRESERVISION A1 EAC2 PO (12:31)
[2020-06-10] MEDS ORDERED: OMEPRAZOLE MAGN20 M1 PO (12:34)
[2020-06-10] MEDS ORDERED: REQUIP0.25 M1 PO (12:34)
[2020-06-10] MEDS ORDERED: RENVELA800 MG PO (12:38)
[2020-06-10] MEDS ORDERED: PROVENTIL HFA6.7 GM INH (12:53)
[2020-06-10 16:00] VITALS: BP 122/64
[2020-06-10 20:01] VITALS: BP 134/66
[2020-06-11] VITALS: BP 98/45
[2020-06-11 08:00] VITALS: BP 110/57
[2020-06-11 12:00] VITALS: BP 114/65
[2020-06-11 16:00] VITALS: BP 106/56
[2020-06-11 20:00] VITALS: BP 97/41
[2020-06-12] VITALS: BP 119/50
[2020-06-12 06:13] LABS: BASO % 0.6 % (0.0-1.0); EOS # 0.3 10*3/uL (0.0-0.4); EOS % 4.5 % (1.0-4.0); HEMATOCRIT 30.3 % (42.0-52.0); LYMPH # 0.9 10*3/uL (1.3-4.4); LYMPH % 14.8 % (27.0-41.0); MEAN CELL VOLUME 101.3 fl (80.0-94.0); MEAN CORPUSCULAR HGB 30.8 pg (27.0-31.0); MEAN CORPUSCULAR HGB CONC 30.4 g/dl (33.0-37.0); MEAN PLATELET VOLUME 9.6 fl (9.6-12.3); MONO # 0.7 10*3/uL (0.1-1.0); MONO % 10.5 % (3.0-9.0); NEUT # 4.4 10*3/uL (2.3-7.9); NEUT % 69.4 % (47.0-73.0); PLATELET COUNT AUTOMATED 160 10*3/uL (130-400); RED BLOOD COUNT 2.99 10*6/uL (4.50-5.90); RED CELL DISTRI WIDTH 15.3 % (0-14.5); WHITE BLOOD COUNT 6.3 10*3/uL (4.8-10.8)
[2020-06-12 06:27] LABS: CREATININE 5.46 mg/dL (0.70-1.30); POTASSIUM 3.8 mmol/L (3.5-5.1)
[2020-06-12 08:00] VITALS: BP 138/52; BP 155/57
[2020-06-12 12:00] VITALS: BP 115/57
[2020-06-12 16:00] VITALS: BP 118/84
[2020-06-12 20:00] VITALS: BP 130/49
[2020-06-13] VITALS: BP 128/54
[2020-06-13 06:42] LABS: POTASSIUM 4.2 mmol/L (3.5-5.1)
[2020-06-13 06:43] LABS: CREATININE 7.39 mg/dL (0.70-1.30)
[2020-06-13 06:46] LABS: BASO % 0.5 % (0.0-1.0); EOS # 0.4 10*3/uL (0.0-0.4); HEMATOCRIT 30.3 % (42.0-52.0); LYMPH % 13.5 % (27.0-41.0); MEAN CELL VOLUME 100.3 fl (80.0-94.0); MEAN CORPUSCULAR HGB 30.8 pg (27.0-31.0); MEAN CORPUSCULAR HGB CONC 30.7 g/dl (33.0-37.0); MEAN PLATELET VOLUME 9.4 fl (9.6-12.3); MONO # 0.8 10*3/uL (0.1-1.0); MONO % 10.8 % (3.0-9.0); NEUT # 5.2 10*3/uL (2.3-7.9); NEUT % 70.1 % (47.0-73.0); PLATELET COUNT AUTOMATED 146 10*3/uL (130-400); RED BLOOD COUNT 3.02 10*6/uL (4.50-5.90); WHITE BLOOD COUNT 7.4 10*3/uL (4.8-10.8)
[2020-06-13 06:56] LABS: ACT PARTIAL THROMBO TIME 28.8 SECONDS (20.0-32.1)
[2020-06-13 08:00] VITALS: BP 117/64
[2020-06-13 12:00] VITALS: BP 126/74
[2020-06-13 16:00] VITALS: BP 121/69
[2020-06-13 20:00] VITALS: BP 129/58
[2020-06-14] VITALS: BP 128/53
[2020-06-14 05:54] LABS: BASO % 0.6 % (0.0-1.0); EOS # 0.4 10*3/uL (0.0-0.4); EOS % 5.9 % (1.0-4.0); HEMATOCRIT 28.9 % (42.0-52.0); LYMPH # 0.9 10*3/uL (1.3-4.4); MEAN CORPUSCULAR HGB 31.1 pg (27.0-31.0); MEAN CORPUSCULAR HGB CONC 30.8 g/dl (33.0-37.0); MEAN PLATELET VOLUME 9.6 fl (9.6-12.3); MONO # 0.7 10*3/uL (0.1-1.0); MONO % 10.6 % (3.0-9.0); NEUT # 4.2 10*3/uL (2.3-7.9); NEUT % 67.7 % (47.0-73.0); PLATELET COUNT AUTOMATED 136 10*3/uL (130-400); RED BLOOD COUNT 2.86 10*6/uL (4.50-5.90); RED CELL DISTRI WIDTH 14.9 % (0-14.5); WHITE BLOOD COUNT 6.2 10*3/uL (4.8-10.8)
[2020-06-14 06:18] LABS: CREATININE 6.19 mg/dL (0.70-1.30); POTASSIUM 3.8 mmol/L (3.5-5.1)
[2020-06-14 08:00] VITALS: BP 102/70; BP 124/56
[2020-06-14 12:00] VITALS: BP 154/61
[2020-06-14 16:00] VITALS: BP 152/54
[2020-06-14 20:00] VITALS: BP 148/55
[2020-06-15] VITALS: BP 135/49
[2020-06-15 06:07] LABS: BASO % 0.6 % (0.0-1.0); EOS # 0.4 10*3/uL (0.0-0.4); EOS % 5.9 % (1.0-4.0); HEMATOCRIT 28.2 % (42.0-52.0); LYMPH # 0.9 10*3/uL (1.3-4.4); LYMPH % 14.4 % (27.0-41.0); MEAN CELL VOLUME 101.4 fl (80.0-94.0); MEAN CORPUSCULAR HGB 31.7 pg (27.0-31.0); MEAN CORPUSCULAR HGB CONC 31.2 g/dl (33.0-37.0); MEAN PLATELET VOLUME 9.4 fl (9.6-12.3); MONO # 0.6 10*3/uL (0.1-1.0); MONO % 9.7 % (3.0-9.0); NEUT # 4.4 10*3/uL (2.3-7.9); NEUT % 68.9 % (47.0-73.0); PLATELET COUNT AUTOMATED 153 10*3/uL (130-400); RED BLOOD COUNT 2.78 10*6/uL (4.50-5.90); RED CELL DISTRI WIDTH 14.7 % (0-14.5); WHITE BLOOD COUNT 6.4 10*3/uL (4.8-10.8)
[2020-06-15 06:39] LABS: CREATININE 7.84 mg/dL (0.70-1.30); POTASSIUM 3.9 mmol/L (3.5-5.1)
[2020-06-15 08:00] VITALS: BP 137/50
[2020-06-15 12:00] VITALS: BP 125/52
[2020-06-15 16:00] VITALS: BP 151/60
[2020-06-15 20:00] VITALS: BP 147/54
[2020-06-16] VITALS: BP 129/60
[2020-06-16 06:11] LABS: CREATININE 9.17 mg/dL (0.70-1.30); POTASSIUM 4.2 mmol/L (3.5-5.1)
[2020-06-16 06:29] LABS: BASO % 0.4 % (0.0-1.0); EOS # 0.4 10*3/uL (0.0-0.4); EOS % 5.1 % (1.0-4.0); LYMPH % 14.7 % (27.0-41.0); MEAN CELL VOLUME 100.7 fl (80.0-94.0); MEAN CORPUSCULAR HGB 31.3 pg (27.0-31.0); MEAN CORPUSCULAR HGB CONC 31.1 g/dl (33.0-37.0); MEAN PLATELET VOLUME 9.7 fl (9.6-12.3); MONO # 0.7 10*3/uL (0.1-1.0); MONO % 10.8 % (3.0-9.0); NEUT # 4.7 10*3/uL (2.3-7.9); NEUT % 68.7 % (47.0-73.0); PLATELET COUNT AUTOMATED 176 10*3/uL (130-400); RED BLOOD COUNT 2.78 10*6/uL (4.50-5.90); RED CELL DISTRI WIDTH 14.6 % (0-14.5); WHITE BLOOD COUNT 6.9 10*3/uL (4.8-10.8)
[2020-06-16 07:56] VITALS: BP 149/58
[2020-06-16 11:47] VITALS: BP 146/56
[2020-06-16 16:00] VITALS: BP 153/61
[2020-06-16 20:00] VITALS: BP 159/61
[2020-06-17] VITALS (8 sets, daily range): BP systolic 97–148; BP diastolic 39–71
[2020-06-17 06:50] LABS: BASO % 0.6 % (0.0-1.0); EOS # 0.3 10*3/uL (0.0-0.4); EOS % 4.1 % (1.0-4.0); HEMATOCRIT 28.7 % (42.0-52.0); LYMPH # 0.9 10*3/uL (1.3-4.4); LYMPH % 11.9 % (27.0-41.0); MEAN CELL VOLUME 99.7 fl (80.0-94.0); MEAN CORPUSCULAR HGB 30.6 pg (27.0-31.0); MEAN CORPUSCULAR HGB CONC 30.7 g/dl (33.0-37.0); MEAN PLATELET VOLUME 9.2 fl (9.6-12.3); MONO # 0.7 10*3/uL (0.1-1.0); NEUT # 5.2 10*3/uL (2.3-7.9); NEUT % 72.8 % (47.0-73.0); PLATELET COUNT AUTOMATED 171 10*3/uL (130-400); RED BLOOD COUNT 2.88 10*6/uL (4.50-5.90); RED CELL DISTRI WIDTH 14.6 % (0-14.5); WHITE BLOOD COUNT 7.1 10*3/uL (4.8-10.8)
[2020-06-17 07:28] LABS: POTASSIUM 4.7 mmol/L (3.5-5.1)
[2020-06-17 07:37] LABS: CREATININE 10.2 mg/dL (0.70-1.30)
[2020-06-17 18:34] LABS: HEMATOCRIT 27.2 % (42.0-52.0)
[2020-06-18] VITALS (8 sets, daily range): BP systolic 115–154; BP diastolic 46–68
[2020-06-18 06:03] LABS: BASO % 0.4 % (0.0-1.0); EOS # 0.4 10*3/uL (0.0-0.4); EOS % 5.2 % (1.0-4.0); LYMPH # 0.9 10*3/uL (1.3-4.4); LYMPH % 12.9 % (27.0-41.0); MEAN CELL VOLUME 100.4 fl (80.0-94.0); MEAN CORPUSCULAR HGB 31.3 pg (27.0-31.0); MEAN CORPUSCULAR HGB CONC 31.2 g/dl (33.0-37.0); MEAN PLATELET VOLUME 9.3 fl (9.6-12.3); MONO # 0.7 10*3/uL (0.1-1.0); NEUT # 5.1 10*3/uL (2.3-7.9); NEUT % 71.1 % (47.0-73.0); PLATELET COUNT AUTOMATED 184 10*3/uL (130-400); RED BLOOD COUNT 2.59 10*6/uL (4.50-5.90); RED CELL DISTRI WIDTH 14.7 % (0-14.5); WHITE BLOOD COUNT 7.1 10*3/uL (4.8-10.8)
[2020-06-18 06:29] LABS: CREATININE 7.05 mg/dL (0.70-1.30); POTASSIUM 5.1 mmol/L (3.5-5.1)
[2020-06-18 08:01] LABS: ALBUMIN 2.4 gm/dl (3.1-4.5); CREATININE 7.11 mg/dL (0.70-1.30); POTASSIUM 5.1 mmol/L (3.5-5.1)
[2020-06-19] VITALS: BP 134/75
[2020-06-19 06:26] LABS: HEMATOCRIT 26.2 % (42.0-52.0); MEAN CELL VOLUME 101.2 fl (80.0-94.0); MEAN CORPUSCULAR HGB 31.3 pg (27.0-31.0); MEAN CORPUSCULAR HGB CONC 30.9 g/dl (33.0-37.0); MEAN PLATELET VOLUME 9.2 fl (9.6-12.3); PLATELET COUNT AUTOMATED 190 10*3/uL (130-400); RED BLOOD COUNT 2.59 10*6/uL (4.50-5.90); RED CELL DISTRI WIDTH 14.5 % (0-14.5); WHITE BLOOD COUNT 6.8 10*3/uL (4.8-10.8)
[2020-06-19 06:59] LABS: CREATININE 4.47 mg/dL (0.70-1.30); POTASSIUM 5.3 mmol/L (3.5-5.1)
[2020-06-19 07:28] LABS: PLATELET SUFFICIENCY NORMAL (NORMAL); POLYCHROMASIA SLIGHT; TOTAL CELLS COUNTED 100 #CELLS
[2020-06-19 12:00] VITALS: BP 159/55
[2020-06-19] MEDS ORDERED: VANCO 1 GR1 GM/250 M IV (15:06)
[2020-06-19 16:00] VITALS: BP 142/86; BP 160/56
[2020-06-19 20:00] VITALS: BP 149/76
[2020-06-20] VITALS (8 sets, daily range): BP systolic 113–171; BP diastolic 58–80
[2020-06-20 05:54] LABS: CREATININE 5.86 mg/dL (0.70-1.30); POTASSIUM 5.5 mmol/L (3.5-5.1)
[2020-06-20 06:17] LABS: HEMATOCRIT 24.7 % (42.0-52.0); MEAN CORPUSCULAR HGB 31.2 pg (27.0-31.0); MEAN CORPUSCULAR HGB CONC 31.2 g/dl (33.0-37.0); MEAN PLATELET VOLUME 9.2 fl (9.6-12.3); PLATELET COUNT AUTOMATED 204 10*3/uL (130-400); RED BLOOD COUNT 2.47 10*6/uL (4.50-5.90); RED CELL DISTRI WIDTH 14.4 % (0-14.5); WHITE BLOOD COUNT 8.9 10*3/uL (4.8-10.8)
[2020-06-20 07:55] LABS: TOTAL CELLS COUNTED 100 #CELLS
[2020-06-20 07:56] LABS: OVALOCYTES FEW; PLATELET SUFFICIENCY NORMAL (NORMAL)
[2020-06-21] VITALS: BP 141/65
[2020-06-21 08:00] VITALS: BP 147/78
[2020-06-21] MEDS ORDERED: PREDNISONE10 MG PO (11:28)
== END 2020-06-21 14:09 | disposition home or self-care (01) | DRG 314 ==
LOC: ED 13:44 → EDHOLD 16:38 → 4E 16:38
PROVIDERS: Family Medicine; Internal Medicine; Internal Medicine Nephrology; Nurse Practitioner Family; ADMIT Internal Medicine; ATTEND Internal Medicine
PROC: 5A1D70Z Performance of Urinary Filtration, Intermittent, Less than 6 Hours Per Day (ICD-10-PCS; 2020-06-09)
PROC: 5A1D70Z Performance of Urinary Filtration, Intermittent, Less than 6 Hours Per Day (ICD-10-PCS; 2020-06-10)
PROC: 5A1D70Z Performance of Urinary Filtration, Intermittent, Less than 6 Hours Per Day (ICD-10-PCS; 2020-06-11)
PROC: 0JPV3XZ Removal of Tunneled Vascular Access Device from Upper Extremity Subcutaneous Tissue and Fascia, Percutaneous Approach (ICD-10-PCS; 2020-06-13)
PROC: 5A1D70Z Performance of Urinary Filtration, Intermittent, Less than 6 Hours Per Day (ICD-10-PCS; 2020-06-13)
PROC: 5A1D70Z Performance of Urinary Filtration, Intermittent, Less than 6 Hours Per Day (ICD-10-PCS; 2020-06-17)
PROC: 02HV33Z Insertion of Infusion Device into Superior Vena Cava, Percutaneous Approach (ICD-10-PCS; 2020-06-17)
PROC: B24BZZ4 Ultrasonography of Heart with Aorta, Transesophageal (ICD-10-PCS; 2020-06-18)
PROC: 5A1D70Z Performance of Urinary Filtration, Intermittent, Less than 6 Hours Per Day (ICD-10-PCS; 2020-06-18)
PROC: 0DB38ZX Excision of Lower Esophagus, Via Natural or Artificial Opening Endoscopic, Diagnostic (ICD-10-PCS; principal; 2020-06-20)
PROC: 5A1D70Z Performance of Urinary Filtration, Intermittent, Less than 6 Hours Per Day (ICD-10-PCS; principal; 2020-06-20)
DX: T80.211A Bloodstream infection due to central venous catheter, initial encounter (principal); G93.41 Metabolic encephalopathy; N18.6 End stage renal disease; E87.1 Hypo-osmolality and hyponatremia; J96.11 Chronic respiratory failure with hypoxia; I48.20 Chronic atrial fibrillation, unspecified; R78.81 Bacteremia; K22.10 Ulcer of esophagus without bleeding; I12.0 Hypertensive chronic kidney disease with stage 5 chronic kidney disease or end stage renal disease; J30.9 Allergic rhinitis, unspecified; E86.0 Dehydration; R79.82 Elevated C-reactive protein (CRP); D53.1 Other megaloblastic anemias, not elsewhere classified; I71.4 Abdominal aortic aneurysm, without rupture; J44.9 Chronic obstructive pulmonary disease, unspecified; G62.9 Polyneuropathy, unspecified; K21.9 Gastro-esophageal reflux disease without esophagitis; Z20.828 Contact with and (suspected) exposure to other viral communicable diseases; N40.0 Benign prostatic hyperplasia without lower urinary tract symptoms; E78.5 Hyperlipidemia, unspecified; E66.9 Obesity, unspecified; H70.92 Unspecified mastoiditis, left ear; D53.9 Nutritional anemia, unspecified; E55.9 Vitamin D deficiency, unspecified; E88.9 Metabolic disorder, unspecified; Z90.49 Acquired absence of other specified parts of digestive tract; B95.8 Unspecified staphylococcus as the cause of diseases classified elsewhere; Z90.5 Acquired absence of kidney; Z95.5 Presence of coronary angioplasty implant and graft; Z82.49 Family history of ischemic heart disease and other diseases of the circulatory system; I25.2 Old myocardial infarction; Z85.528 Personal history of other malignant neoplasm of kidney; Z99.2 Dependence on renal dialysis; Z99.81 Dependence on supplemental oxygen

== ENCOUNTER 2020-07-23 00:13 | Inpatient (IN) | payer MEDICARE ==
[~2020-07-23] VITALS: Ht 172.7 cm; Wt 78.7 kg
[2020-07-23] VITALS (9 sets, daily range): BP systolic 110–178; BP diastolic 68–108
[~2020-07-23 00:13] MED LIST changes: +ASPIRIN81 M1 PO; +COREG3.125 MG PO; +OMEPRAZOLE MAGN20 M1 PO; +PRESERVISION A1 EAC2 PO; +REQUIP0.25 M1 PO; +VANCO 1 GR1 GM/250 M IV
--- NOTE | 2020-07-23 00:30 | NUR ---
Pt placed on BiPap 10/5 and FiO2 40%. Alarms on and audible.
--- NOTE | 2020-07-23 00:32 | NUR ---
RESPIRATORY AT BEDSIDE NOW FOR BIPAP TERRITORY SALES MANAGER.
[2020-07-23 00:42] LABS: BASO % 0.3 % (0.0-1.0); EOS # 0.4 10*3/uL (0.0-0.4); EOS % 7.1 % (1.0-4.0); LYMPH # 1.3 10*3/uL (1.3-4.4); LYMPH % 21.2 % (27.0-41.0); MEAN CELL VOLUME 101.5 fl (80.0-94.0); MEAN CORPUSCULAR HGB 30.8 pg (27.0-31.0); MEAN CORPUSCULAR HGB CONC 30.3 g/dl (33.0-37.0); MEAN PLATELET VOLUME 9.6 fl (9.6-12.3); MONO # 0.7 10*3/uL (0.1-1.0); MONO % 11.6 % (3.0-9.0); NEUT # 3.7 10*3/uL (2.3-7.9); NEUT % 59.5 % (47.0-73.0); PLATELET COUNT AUTOMATED 196 10*3/uL (130-400); RED BLOOD COUNT 3.25 10*6/uL (4.50-5.90); RED CELL DISTRI WIDTH 18.4 % (0-14.5); WHITE BLOOD COUNT 6.2 10*3/uL (4.8-10.8)
[2020-07-23 00:59] LABS: ALBUMIN 2.7 gm/dl (3.1-4.5); CREATININE 12.7 mg/dL (0.70-1.30); TOTAL PROTEIN 6.3 gm/dL (6.4-8.2); TROPONIN I 0.039 ng/ml (<0.045)
--- NOTE | 2020-07-23 01:18 | NUR ---
PATIENT IN BED AWAKE AND ALERT, TOLERATING BIPAP WELL. SPO2 100%. NO DISTRESS NOTED. RESP EASY AND NONLABORED AT THIS TIME. RN WILL CONT TO MONITOR
--- NOTE | 2020-07-23 03:35 | NUR ---
PATIENT TAKEN OFF BIPAP AT THIS TIME AND PLACED ON 4 LITERS NC- PATIENT DRINKING CUP OF COFFEE. NO DISTRESS NOTED. RN WILL CONT TO MONITOR. SPO2 98% 4 LITERS.
--- NOTE | 2020-07-23 03:45 | NUR ---
ABG DONE ON 4LNC. BIPAP PREVIOUSLY ON FOR WORK OF BREATHING
[2020-07-23 03:54] LABS: ABG BASE EXCESS -3.6 mmol/L (-2.0-2.0); ARTERIAL BLOOD GAS PH 7.341 (7.35-7.45)
--- NOTE | 2020-07-23 04:00 | NUR ---
A 84, admitted to 5E, under the services of JOSE Villanueva DO with a diagnosis of CHF, ACUTE KIDNEY FAILURE WITH TUBULAR NECROSIS, HYPERKALEMIA. Chief complaint is SOB. Patient arrived via ambulance from ER. Monitor applied. Initial assessment completed. Vital signs taken and recorded. JOSE VILLANUEVA DO notified of admission to the unit. Orders received. See assessment for past medical history, medications and allergies. Patient and/or family oriented to unit. visitation policy reviewed. Clothing/patient valuable form completed. MARLENY LOMBARDO
--- NOTE | 2020-07-23 05:42 | NUR ---
DIALYSIS CLINIC NOTIFIED THAT PATIENT WAS ADMITTED AND RECEIVES DIALYSIS . STATED SHE WOULD NOTIFY THE NURSE ON DUTY.
--- NOTE | 2020-07-23 05:46 | NUR ---
DR. CHRISTIE'S ANSWERING SERVICE NOTIFIED OF CONSULT FOR PATIENT FOR ESRD.
[2020-07-23 06:14] LABS: HEMATOCRIT 33.6 % (42.0-52.0); MEAN CORPUSCULAR HGB 30.1 pg (27.0-31.0); MEAN CORPUSCULAR HGB CONC 30.1 g/dl (33.0-37.0); MEAN PLATELET VOLUME 10.3 fl (9.6-12.3); PLATELET COUNT AUTOMATED 203 10*3/uL (130-400); RED BLOOD COUNT 3.36 10*6/uL (4.50-5.90); RED CELL DISTRI WIDTH 18.3 % (0-14.5); WHITE BLOOD COUNT 4.9 10*3/uL (4.8-10.8)
[2020-07-23 06:42] LABS: ALBUMIN 2.8 gm/dl (3.1-4.5); CREATININE 12.9 mg/dL (0.70-1.30); TOTAL PROTEIN 6.2 gm/dL (6.4-8.2)
[2020-07-23 06:44] LABS: POTASSIUM 6.7 mmol/L (3.5-5.1)
--- NOTE | 2020-07-23 06:44 | NUR ---
DR. BUSTAMANTE NOTIFIED OF CRITICAL POTASSIUM OF 6.7.
[2020-07-23 07:15] LABS: BASOPHILS 1 % (0-1); PLATELET SUFFICIENCY NORMAL (NORMAL); SCHISTOCYTES FEW; TOTAL CELLS COUNTED 100 #CELLS
--- NOTE | 2020-07-23 11:41 | NUR ---
MONA ALVARADO NP NOTIFED OF CONSULT.
[2020-07-23 12:38] LABS: CREATININE 5.73 mg/dL (0.70-1.30)
[2020-07-23 12:49] LABS: POTASSIUM 4.3 mmol/L (3.5-5.1)
[2020-07-24] VITALS: BP 151/60
[2020-07-24 06:45] LABS: BASO % 0.2 % (0.0-1.0); EOS % 0.2 % (1.0-4.0); HEMATOCRIT 32.4 % (42.0-52.0); LYMPH # 0.6 10*3/uL (1.3-4.4); LYMPH % 9.6 % (27.0-41.0); MEAN CELL VOLUME 102.2 fl (80.0-94.0); MEAN CORPUSCULAR HGB 30.6 pg (27.0-31.0); MEAN CORPUSCULAR HGB CONC 29.9 g/dl (33.0-37.0); MONO # 0.5 10*3/uL (0.1-1.0); MONO % 8.2 % (3.0-9.0); NEUT # 5.4 10*3/uL (2.3-7.9); NEUT % 81.3 % (47.0-73.0); PLATELET COUNT AUTOMATED 236 10*3/uL (130-400); RED BLOOD COUNT 3.17 10*6/uL (4.50-5.90); RED CELL DISTRI WIDTH 18.5 % (0-14.5); WHITE BLOOD COUNT 6.6 10*3/uL (4.8-10.8)
[2020-07-24 06:56] LABS: CREATININE 7.65 mg/dL (0.70-1.30)
[2020-07-24 07:04] LABS: POTASSIUM 5.4 mmol/L (3.5-5.1)
[2020-07-24 08:00] VITALS: BP 141/69
--- NOTE | 2020-07-24 09:11 | NUR ---
PT RESTING IN BED. NO DISTRESS NOTED. WILL MONITOR
[2020-07-24 12:00] VITALS: BP 139/81
--- NOTE | 2020-07-24 12:31 | NUR ---
Equal Opportunity Director in to talk to patient. Patient states lives at HOME with ALONE. There are NO steps in the home. Physician: REJI ANG Pharmacy: [place] AND [facility] Home health services: NONE Patient's level of ADLs: MODERATE ASSIST Patient has working utilities: YES DME: WALKER CANE, AND OXYGEN FROM [facility] Follow-up physician's appointment after d/c: WILL BE MADE BY HOSPITALIST NURSE DIRECTOR ON DISCHARGE Does patient want to access PORTAL?: NO Discharge plan PT LIVES AT HOME ALONE AND STATES HE RECENTLY WAS RELEASED FROM [facility]. STATES HE WAS DOING WELL WITH THERAPY THERE AND WHEN RELEASED FROM THERE WENT HOME. STATES HOME HEALTH CAME ONE DAY THEN TOLD HIM THEY WOULD NOT BE BACK. DOES NOT KNOW NAME OF COMPANY HE HAD. STATE HE CAN'T GO BACK TO REHAB BECAUSE HE DOESN'T HAVE DAYS LEFT. WANTS TO GO HOME WHEN MEDICALLY STABLE. DOES AGREE TO HOME HEALTH. WILL CONTINUE TO FOLLOW. STATES HE WILL HAVE A RIDE. PT MAY POSSIBLEY BE TRANSFERRED.. CATALINA RIVERA
--- NOTE | 2020-07-24 13:12 | NUR ---
SPOKE WITH ADEEL FROM [facility], SHE STATES THAT PT WAS NOT HOME BOUND AND THAT IS WHY THEY COULD NOT SEE HIM. PT TOLD THEM HE GOES OUT FOR BREAKFAST AND GOES TO LUNCH AFTER DIALYSIS. WILL CONTINUE TO FOLLOW.
[2020-07-24 16:00] VITALS: BP 157/82
--- NOTE | 2020-07-24 18:05 | NUR ---
Discharge instructions reviewed with patient/family. Patient receptive and verbalizes understanding. Follow-up care arranged. Written instructions given to patient/family. RENATA VAZQUEZ
--- NOTE | 2020-07-24 18:05 | NUR ---
PT REFUSED DC WOUND PHOTOS " IM NOT WAITING ON THOSE , MY RIDE IS HERE !!"
== END 2020-07-24 18:43 | disposition home health service (06) | DRG 291 ==
LOC: ED 00:13 → EDHOLD 02:26 → 5E 02:26
PROVIDERS: Emergency Medicine; Hospitalist; Internal Medicine; ADMIT Internal Medicine; ATTEND Internal Medicine
PROC: 5A1D70Z Performance of Urinary Filtration, Intermittent, Less than 6 Hours Per Day (ICD-10-PCS; principal; 2020-07-23)
DX: I13.2 Hypertensive heart and chronic kidney disease with heart failure and with stage 5 chronic kidney disease, or end stage renal disease (principal); E43 Unspecified severe protein-calorie malnutrition; N18.6 End stage renal disease; I50.33 Acute on chronic diastolic (congestive) heart failure; N17.9 Acute kidney failure, unspecified; I48.20 Chronic atrial fibrillation, unspecified; E87.5 Hyperkalemia; I71.4 Abdominal aortic aneurysm, without rupture; N40.0 Benign prostatic hyperplasia without lower urinary tract symptoms; J44.9 Chronic obstructive pulmonary disease, unspecified; K21.9 Gastro-esophageal reflux disease without esophagitis; G62.9 Polyneuropathy, unspecified; E78.5 Hyperlipidemia, unspecified; D53.9 Nutritional anemia, unspecified; E83.41 Hypermagnesemia; E83.39 Other disorders of phosphorus metabolism; Z90.49 Acquired absence of other specified parts of digestive tract; Z90.5 Acquired absence of kidney; Z95.5 Presence of coronary angioplasty implant and graft; Z98.49 Cataract extraction status, unspecified eye; Z82.49 Family history of ischemic heart disease and other diseases of the circulatory system; Z85.528 Personal history of other malignant neoplasm of kidney; I25.2 Old myocardial infarction; Z87.891 Personal history of nicotine dependence; Z99.81 Dependence on supplemental oxygen; Z68.26 Body mass index [BMI] 26.0-26.9, adult

== ENCOUNTER 2020-12-06 11:42 | Inpatient (IN) | payer MEDICARE ==
[~2020-12-06] VITALS: Ht 170.2 cm; Wt 69.1 kg
[2020-12-06 11:45] VITALS: BP 154/83; BP 165/101
[2020-12-06 12:21] LABS: BASO % 0.9 % (0.0-1.0); EOS # 0.1 10*3/uL (0.0-0.4); EOS % 2.1 % (1.0-4.0); HEMATOCRIT 37.6 % (42.0-52.0); LYMPH # 0.2 10*3/uL (1.3-4.4); MEAN CELL VOLUME 100.3 fl (80.0-94.0); MEAN CORPUSCULAR HGB 32.3 pg (27.0-31.0); MEAN CORPUSCULAR HGB CONC 32.2 g/dl (33.0-37.0); MEAN PLATELET VOLUME 10.5 fl (9.6-12.3); MONO # 0.4 10*3/uL (0.1-1.0); MONO % 9.8 % (3.0-9.0); NEUT # 3.5 10*3/uL (2.3-7.9); NEUT % 82.5 % (47.0-73.0); PLATELET COUNT AUTOMATED 100 10*3/uL (130-400); RED BLOOD COUNT 3.75 10*6/uL (4.50-5.90); RED CELL DISTRI WIDTH 17.3 % (0-14.5); WHITE BLOOD COUNT 4.3 10*3/uL (4.8-10.8)
[2020-12-06 12:32] LABS: ACT PARTIAL THROMBO TIME 28.4 SECONDS (20.0-32.1); INTERNATIONAL NORM RATIO 1.1 (2.0-3.5)
[2020-12-06 12:38] LABS: ALBUMIN 3.1 gm/dl (3.1-4.5); CREATININE 9.27 mg/dL (0.70-1.30); POTASSIUM 3.7 mmol/L (3.5-5.1); TOTAL PROTEIN 5.9 gm/dL (6.4-8.2)
[2020-12-06 12:39] VITALS: BP 153/68
[2020-12-06 12:39] LABS: TROPONIN I 0.031 ng/ml (<0.045)
[2020-12-06 14:24] VITALS: BP 161/67
[2020-12-07] VITALS: BP 128/73
[2020-12-07 06:21] LABS: BASO % 0.8 % (0.0-1.0); EOS # 0.2 10*3/uL (0.0-0.4); HEMATOCRIT 33.9 % (42.0-52.0); LYMPH # 0.2 10*3/uL (1.3-4.4); LYMPH % 5.8 % (27.0-41.0); MEAN CELL VOLUME 101.5 fl (80.0-94.0); MEAN CORPUSCULAR HGB CONC 31.6 g/dl (33.0-37.0); MEAN PLATELET VOLUME 10.5 fl (9.6-12.3); MONO # 0.5 10*3/uL (0.1-1.0); MONO % 13.5 % (3.0-9.0); NEUT # 2.9 10*3/uL (2.3-7.9); NEUT % 75.4 % (47.0-73.0); PLATELET COUNT AUTOMATED 86 10*3/uL (130-400); RED BLOOD COUNT 3.34 10*6/uL (4.50-5.90); RED CELL DISTRI WIDTH 17.4 % (0-14.5); WHITE BLOOD COUNT 3.8 10*3/uL (4.8-10.8)
[2020-12-07 06:54] LABS: ALBUMIN 2.8 gm/dl (3.1-4.5); CREATININE 4.87 mg/dL (0.70-1.30); POTASSIUM 3.4 mmol/L (3.5-5.1)
[2020-12-07 07:02] LABS: FREE T4 1.19 ng/dl (0.76-1.46); THYROID STIM HORMONE (HS) 5.24 uIU/ml (0.358-4.75)
[2020-12-07 08:00] VITALS: BP 126/78
[2020-12-07 12:00] VITALS: BP 142/62
[2020-12-07 16:00] VITALS: BP 152/68
[2020-12-07 20:00] VITALS: BP 129/62
[2020-12-08] VITALS: BP 98/52
[2020-12-08 06:37] LABS: BASO # 0.1 10*3/uL (0.0-0.1); BASO % 1.2 % (0.0-1.0); EOS # 0.1 10*3/uL (0.0-0.4); EOS % 3.3 % (1.0-4.0); HEMATOCRIT 32.9 % (42.0-52.0); LYMPH # 0.3 10*3/uL (1.3-4.4); LYMPH % 7.2 % (27.0-41.0); MEAN CELL VOLUME 100.6 fl (80.0-94.0); MEAN CORPUSCULAR HGB 31.8 pg (27.0-31.0); MEAN CORPUSCULAR HGB CONC 31.6 g/dl (33.0-37.0); MEAN PLATELET VOLUME 10.7 fl (9.6-12.3); MONO # 0.6 10*3/uL (0.1-1.0); MONO % 14.8 % (3.0-9.0); NEUT # 3.1 10*3/uL (2.3-7.9); PLATELET COUNT AUTOMATED 95 10*3/uL (130-400); RED BLOOD COUNT 3.27 10*6/uL (4.50-5.90); RED CELL DISTRI WIDTH 17.2 % (0-14.5); WHITE BLOOD COUNT 4.2 10*3/uL (4.8-10.8)
[2020-12-08 07:07] LABS: CREATININE 6.4 mg/dL (0.70-1.30)
[2020-12-08 07:30] LABS: ALBUMIN 2.7 gm/dl (3.1-4.5); POTASSIUM 3.7 mmol/L (3.5-5.1)
[2020-12-08 12:00] VITALS: BP 110/70
== END 2020-12-08 13:29 | disposition home or self-care (01) | DRG 374 ==
LOC: ED 11:42 → EDHOLD 13:09 → 5E 13:09 → EDHOLD 13:22 → 5E 14:27
PROVIDERS: Emergency Medicine; Internal Medicine; Internal Medicine Nephrology; ADMIT Family Medicine; ATTEND Family Medicine
PROC: 5A1D70Z Performance of Urinary Filtration, Intermittent, Less than 6 Hours Per Day (ICD-10-PCS; principal; 2020-12-06)
DX: C15.9 Malignant neoplasm of esophagus, unspecified (principal); N18.6 End stage renal disease; D68.9 Coagulation defect, unspecified; I48.20 Chronic atrial fibrillation, unspecified; I13.2 Hypertensive heart and chronic kidney disease with heart failure and with stage 5 chronic kidney disease, or end stage renal disease; D53.9 Nutritional anemia, unspecified; N40.0 Benign prostatic hyperplasia without lower urinary tract symptoms; J44.9 Chronic obstructive pulmonary disease, unspecified; K21.9 Gastro-esophageal reflux disease without esophagitis; I50.9 Heart failure, unspecified; D69.6 Thrombocytopenia, unspecified; E80.6 Other disorders of bilirubin metabolism; E87.6 Hypokalemia; E83.41 Hypermagnesemia; E78.5 Hyperlipidemia, unspecified; G62.9 Polyneuropathy, unspecified; Z99.81 Dependence on supplemental oxygen; Z79.01 Long term (current) use of anticoagulants; Z99.2 Dependence on renal dialysis; Z90.49 Acquired absence of other specified parts of digestive tract

== ENCOUNTER 2021-01-04 15:30 | Emergency (ER) | payer MEDICARE ==
[~2021-01-04] VITALS: Wt 67.6 kg
[2021-01-04] MEDS ORDERED: Clopidogrel75 MG PO (15:39)
[2021-01-04] MEDS ORDERED: ASPIRIN CHEWABL81 MG PO (15:39)
[2021-01-04 16:19] LABS: EOS # 0.1 10*3/uL (0.0-0.4); EOS % 2.5 % (1.0-4.0); HEMATOCRIT 31.1 % (42.0-52.0); LYMPH # 0.7 10*3/uL (1.3-4.4); LYMPH % 16.7 % (27.0-41.0); MEAN CELL VOLUME 102.6 fl (80.0-94.0); MEAN CORPUSCULAR HGB 32.7 pg (27.0-31.0); MEAN CORPUSCULAR HGB CONC 31.8 g/dl (33.0-37.0); MEAN PLATELET VOLUME 9.6 fl (9.6-12.3); MONO # 0.5 10*3/uL (0.1-1.0); NEUT # 2.7 10*3/uL (2.3-7.9); NEUT % 67.6 % (47.0-73.0); PLATELET COUNT AUTOMATED 83 10*3/uL (130-400); RED BLOOD COUNT 3.03 10*6/uL (4.50-5.90); RED CELL DISTRI WIDTH 16.4 % (0-14.5)
[2021-01-04 16:31] LABS: CREATININE 6.58 mg/dL (0.70-1.30); POTASSIUM 4.2 mmol/L (3.5-5.1)
[2021-01-04 16:36] LABS: INTERNATIONAL NORM RATIO 1.1 (2.0-3.5)
== END 2021-01-04 16:57 | disposition home or self-care (01) ==
LOC: ED 15:30
PROVIDERS: Physician Assistant
DX: S40.021A Contusion of right upper arm, initial encounter (principal); Z85.01 Personal history of malignant neoplasm of esophagus; Z79.899 Other long term (current) drug therapy; Z79.82 Long term (current) use of aspirin; Z90.49 Acquired absence of other specified parts of digestive tract; Z98.890 Other specified postprocedural states; Z95.5 Presence of coronary angioplasty implant and graft; Z87.891 Personal history of nicotine dependence; Z99.2 Dependence on renal dialysis; X58.XXXA Exposure to other specified factors, initial encounter; Y93.89 Activity, other specified; Y92.89 Other specified places as the place of occurrence of the external cause; Y99.8 Other external cause status

== ENCOUNTER 2021-01-12 14:03 | Inpatient (IN) | payer MEDICARE ==
[~2021-01-12] VITALS: Ht 170.1 cm; Wt 68.1 kg
[~2021-01-12 14:03] MED LIST changes: +Clopidogrel75 MG PO
[2021-01-12 14:10] VITALS: BP 113/65
[2021-01-12 14:29] LABS: BASO % 0.6 % (0.0-1.0); EOS # 0.1 10*3/uL (0.0-0.4); EOS % 1.6 % (1.0-4.0); HEMATOCRIT 28.2 % (42.0-52.0); LYMPH # 0.4 10*3/uL (1.3-4.4); LYMPH % 8.4 % (27.0-41.0); MEAN CELL VOLUME 104.4 fl (80.0-94.0); MEAN CORPUSCULAR HGB CONC 31.6 g/dl (33.0-37.0); MEAN PLATELET VOLUME 9.9 fl (9.6-12.3); MONO # 0.3 10*3/uL (0.1-1.0); MONO % 6.5 % (3.0-9.0); NEUT # 4.2 10*3/uL (2.3-7.9); NEUT % 82.3 % (47.0-73.0); PLATELET COUNT AUTOMATED 86 10*3/uL (130-400); RED CELL DISTRI WIDTH 18.8 % (0-14.5); WHITE BLOOD COUNT 5.1 10*3/uL (4.8-10.8)
[2021-01-12 14:39] LABS: ACT PARTIAL THROMBO TIME 26.2 SECONDS (20.0-32.1); INTERNATIONAL NORM RATIO 1.1 (2.0-3.5)
[2021-01-12 14:43] LABS: ALBUMIN 3.1 gm/dl (3.1-4.5); CREATININE 4.91 mg/dL (0.70-1.30); POTASSIUM 3.7 mmol/L (3.5-5.1); TOTAL PROTEIN 5.8 gm/dL (6.4-8.2); TROPONIN I 0.021 ng/ml (<0.045)
[2021-01-12 17:27] VITALS: BP 123/63
[2021-01-12 18:22] VITALS: BP 106/51
[2021-01-12 18:40] VITALS: BP 121/63
[2021-01-12 19:04] VITALS: BP 112/53
[2021-01-12 21:20] VITALS: BP 117/48
[2021-01-13] VITALS: BP 113/60
[2021-01-13 06:16] LABS: HEMATOCRIT 25.9 % (42.0-52.0); LYMPH # 0.3 10*3/uL (1.3-4.4); LYMPH % 9.8 % (27.0-41.0); MEAN CELL VOLUME 104.9 fl (80.0-94.0); MEAN CORPUSCULAR HGB 33.2 pg (27.0-31.0); MEAN CORPUSCULAR HGB CONC 31.7 g/dl (33.0-37.0); MEAN PLATELET VOLUME 10.4 fl (9.6-12.3); MONO # 0.1 10*3/uL (0.1-1.0); MONO % 2.1 % (3.0-9.0); NEUT # 2.9 10*3/uL (2.3-7.9); NEUT % 88.1 % (47.0-73.0); PLATELET COUNT AUTOMATED 85 10*3/uL (130-400); RED BLOOD COUNT 2.47 10*6/uL (4.50-5.90); RED CELL DISTRI WIDTH 19.2 % (0-14.5); WHITE BLOOD COUNT 3.3 10*3/uL (4.8-10.8)
[2021-01-13 06:42] LABS: ALBUMIN 2.8 gm/dl (3.1-4.5); CREATININE 6.47 mg/dL (0.70-1.30); FREE T4 1.19 ng/dl (0.76-1.46); POTASSIUM 4.4 mmol/L (3.5-5.1); TOTAL PROTEIN 5.4 gm/dL (6.4-8.2)
[2021-01-13 06:46] LABS: THYROID STIM HORMONE (HS) 2.43 uIU/ml (0.358-4.75)
[2021-01-13 07:21] LABS: VITAMIN D, 25-HYDROXY 92.2 ng/mL (30-100)
[2021-01-13 08:00] VITALS: BP 148/73
[2021-01-13 12:00] VITALS: BP 141/66
[2021-01-13 16:00] VITALS: BP 130/92
[2021-01-13 20:32] VITALS: BP 140/64
[2021-01-14] VITALS: BP 145/71
[2021-01-14 07:08] LABS: HEMATOCRIT 25.5 % (42.0-52.0); LYMPH # 0.4 10*3/uL (1.3-4.4); LYMPH % 5.8 % (27.0-41.0); MEAN CELL VOLUME 107.1 fl (80.0-94.0); MEAN CORPUSCULAR HGB CONC 31.8 g/dl (33.0-37.0); MONO # 0.3 10*3/uL (0.1-1.0); MONO % 5.3 % (3.0-9.0); NEUT # 5.7 10*3/uL (2.3-7.9); NEUT % 88.3 % (47.0-73.0); PLATELET COUNT AUTOMATED 97 10*3/uL (130-400); RED BLOOD COUNT 2.38 10*6/uL (4.50-5.90); RED CELL DISTRI WIDTH 19.9 % (0-14.5); WHITE BLOOD COUNT 6.4 10*3/uL (4.8-10.8)
[2021-01-14 07:26] LABS: ALBUMIN 3.1 gm/dl (3.1-4.5); CREATININE 7.74 mg/dL (0.70-1.30); POTASSIUM 4.3 mmol/L (3.5-5.1)
[2021-01-14 07:30] LABS: TOTAL PROTEIN 5.6 gm/dL (6.4-8.2)
[2021-01-14 08:00] VITALS: BP 158/58
[2021-01-14] MEDS ORDERED: ZITHROMAX500 MG PO (10:31)
[2021-01-14] MEDS ORDERED: OMNICEF300 MG PO (10:32)
== END 2021-01-14 10:30 | disposition home or self-care (01) | DRG 177 ==
LOC: ED 14:03 → EDHOLD 16:10 → 4E 16:10
PROVIDERS: Emergency Medicine; Hospitalist; Registered Nurse; ADMIT Internal Medicine; ATTEND Internal Medicine
DX: J15.6 Pneumonia due to other Gram-negative bacteria (principal); N18.6 End stage renal disease; E43 Unspecified severe protein-calorie malnutrition; I13.2 Hypertensive heart and chronic kidney disease with heart failure and with stage 5 chronic kidney disease, or end stage renal disease; J44.1 Chronic obstructive pulmonary disease with (acute) exacerbation; E87.2 Acidosis; I50.32 Chronic diastolic (congestive) heart failure; C15.9 Malignant neoplasm of esophagus, unspecified; J44.0 Chronic obstructive pulmonary disease with (acute) lower respiratory infection; J96.11 Chronic respiratory failure with hypoxia; G62.9 Polyneuropathy, unspecified; N28.9 Disorder of kidney and ureter, unspecified; K21.9 Gastro-esophageal reflux disease without esophagitis; D53.9 Nutritional anemia, unspecified; D69.6 Thrombocytopenia, unspecified; Z99.2 Dependence on renal dialysis; Z99.81 Dependence on supplemental oxygen; Z95.5 Presence of coronary angioplasty implant and graft; Z90.49 Acquired absence of other specified parts of digestive tract; Z87.891 Personal history of nicotine dependence; Z82.49 Family history of ischemic heart disease and other diseases of the circulatory system; Z79.51 Long term (current) use of inhaled steroids; Z79.82 Long term (current) use of aspirin; Z79.899 Other long term (current) drug therapy; Z68.22 Body mass index [BMI] 22.0-22.9, adult

== ENCOUNTER 2021-02-06 10:42 | Emergency (ER) | payer MEDICARE ==
[2021-02-06 11:51] LABS: HEMATOCRIT 32.1 % (42.0-52.0); MEAN CELL VOLUME 111.8 fl (80.0-94.0); MEAN CORPUSCULAR HGB 35.2 pg (27.0-31.0); MEAN CORPUSCULAR HGB CONC 31.5 g/dl (33.0-37.0); MEAN PLATELET VOLUME 9.7 fl (9.6-12.3); PLATELET COUNT AUTOMATED 119 10*3/uL (130-400); RED BLOOD COUNT 2.87 10*6/uL (4.50-5.90); WHITE BLOOD COUNT 3.6 10*3/uL (4.8-10.8)
[2021-02-06 12:05] LABS: CREATININE 4.5 mg/dL (0.70-1.30); POTASSIUM 3.6 mmol/L (3.5-5.1); TOTAL PROTEIN 5.8 gm/dL (6.4-8.2)
[2021-02-06 12:15] LABS: TOTAL CELLS COUNTED 100 #CELLS
[2021-02-06 12:16] LABS: OVALOCYTES FEW; PLATELET SUFFICIENCY LOW (NORMAL)
== END 2021-02-06 14:45 | disposition home or self-care (01) ==
LOC: ED 10:42
PROVIDERS: Physician Assistant
DX: R19.7 Diarrhea, unspecified (principal); Z79.899 Other long term (current) drug therapy; Z79.82 Long term (current) use of aspirin; Z98.890 Other specified postprocedural states; Z90.49 Acquired absence of other specified parts of digestive tract; Z95.818 Presence of other cardiac implants and grafts; Z90.5 Acquired absence of kidney

== ENCOUNTER 2021-02-20 12:24 | Emergency (ER) | payer MEDICARE ==
[~2021-02-20] VITALS: Ht 158.7 cm; Wt 70.8 kg
[2021-02-20 13:31] LABS: MEAN CELL VOLUME 117.4 fl (80.0-94.0); MEAN CORPUSCULAR HGB 36.1 pg (27.0-31.0); MEAN CORPUSCULAR HGB CONC 30.8 g/dl (33.0-37.0); MEAN PLATELET VOLUME 10.2 fl (9.6-12.3); PLATELET COUNT AUTOMATED 156 10*3/uL (130-400); RED BLOOD COUNT 1.55 10*6/uL (4.50-5.90); RED CELL DISTRI WIDTH 17.7 % (0-14.5); WHITE BLOOD COUNT 4.1 10*3/uL (4.8-10.8)
[2021-02-20 13:38] LABS: ACT PARTIAL THROMBO TIME 25.4 SECONDS (20.0-32.1); HEMATOCRIT 18.2 % (42.0-52.0); INTERNATIONAL NORM RATIO 1.1 (2.0-3.5)
[2021-02-20 13:42] LABS: ALBUMIN 2.6 gm/dl (3.1-4.5); CREATININE 5.23 mg/dL (0.70-1.30); POTASSIUM 4.1 mmol/L (3.5-5.1); TROPONIN I 0.029 ng/ml (<0.045)
[2021-02-20 13:46] LABS: BASOPHILS 2 % (0-1); OVALOCYTES FEW; PLATELET SUFFICIENCY NORMAL (NORMAL); POLYCHROMASIA SLIGHT; SCHISTOCYTES FEW; TOTAL CELLS COUNTED 100 #CELLS
[2021-02-20 14:39] VITALS: BP 92/80
[2021-02-20 15:11] VITALS: BP 100/60
[2021-02-20 16:22] VITALS: BP 108/64
[2021-02-20 17:25] VITALS: BP 90/60
[2021-02-20 18:55] VITALS: BP 94/60
[2021-02-20 19:12] VITALS: BP 90/60
== END 2021-02-20 21:34 | disposition home or self-care (01) ==
LOC: ED 12:24
PROVIDERS: Emergency Medicine
DX: I12.9 Hypertensive chronic kidney disease with stage 1 through stage 4 chronic kidney disease, or unspecified chronic kidney disease (principal); N18.6 End stage renal disease; R79.82 Elevated C-reactive protein (CRP); E87.2 Acidosis; D53.9 Nutritional anemia, unspecified; E44.0 Moderate protein-calorie malnutrition; Z79.899 Other long term (current) drug therapy; Z98.890 Other specified postprocedural states; Z90.49 Acquired absence of other specified parts of digestive tract

== ENCOUNTER 2021-02-22 14:03 | Inpatient (IN) | payer MEDICARE ==
[~2021-02-22] VITALS: Ht 157.4 cm; Wt 70.1 kg
[2021-02-22 14:05] VITALS: BP 125/78
[2021-02-22 14:34] LABS: MEAN CELL VOLUME 110.1 fl (80.0-94.0); MEAN CORPUSCULAR HGB 34.4 pg (27.0-31.0); MEAN CORPUSCULAR HGB CONC 31.2 g/dl (33.0-37.0); MEAN PLATELET VOLUME 9.4 fl (9.6-12.3); PLATELET COUNT AUTOMATED 128 10*3/uL (130-400); RED BLOOD COUNT 2.27 10*6/uL (4.50-5.90); RED CELL DISTRI WIDTH 22.5 % (0-14.5); WHITE BLOOD COUNT 5.4 10*3/uL (4.8-10.8)
[2021-02-22 14:49] LABS: ALBUMIN 2.9 gm/dl (3.1-4.5); CREATININE 8.32 mg/dL (0.70-1.30); POTASSIUM 4.3 mmol/L (3.5-5.1); TOTAL PROTEIN 5.3 gm/dL (6.4-8.2)
[2021-02-22 14:50] LABS: PLATELET SUFFICIENCY NORMAL (NORMAL); TOTAL CELLS COUNTED 100 #CELLS
[2021-02-22 14:51] LABS: BURR CELLS FEW
[2021-02-22 16:07] VITALS: BP 147/67
[2021-02-22] MEDS ORDERED: ESOMEPRAZOLE MA20 MG PO (19:37)
[2021-02-22] MEDS ORDERED: MUCINEX ER600 MG PO (19:37)
[2021-02-22 20:15] VITALS: BP 134/66
[2021-02-22 22:08] VITALS: BP 134/66
[2021-02-22 22:45] VITALS: BP 130/71
[2021-02-22 23:45] VITALS: BP 137/56
[2021-02-23 00:45] VITALS: BP 117/51
[2021-02-23 01:50] VITALS: BP 138/58
[2021-02-23 06:31] LABS: ACT PARTIAL THROMBO TIME 26.1 SECONDS (20.0-32.1); INTERNATIONAL NORM RATIO 1.1 (2.0-3.5)
[2021-02-23 06:54] LABS: BASO % 0.7 % (0.0-1.0); EOS # 0.1 10*3/uL (0.0-0.4); EOS % 2.1 % (1.0-4.0); HEMATOCRIT 23.6 % (42.0-52.0); LYMPH # 0.7 10*3/uL (1.3-4.4); LYMPH % 11.5 % (27.0-41.0); MEAN CORPUSCULAR HGB 32.9 pg (27.0-31.0); MEAN CORPUSCULAR HGB CONC 32.6 g/dl (33.0-37.0); MEAN PLATELET VOLUME 10.2 fl (9.6-12.3); MONO # 0.5 10*3/uL (0.1-1.0); MONO % 8.7 % (3.0-9.0); NEUT # 4.3 10*3/uL (2.3-7.9); NEUT % 75.9 % (47.0-73.0); PLATELET COUNT AUTOMATED 118 10*3/uL (130-400); RED BLOOD COUNT 2.34 10*6/uL (4.50-5.90); RED CELL DISTRI WIDTH 24.8 % (0-14.5); WHITE BLOOD COUNT 5.7 10*3/uL (4.8-10.8)
[2021-02-23 06:55] LABS: MEAN CELL VOLUME 100.9 fl (80.0-94.0)
[2021-02-23 07:19] LABS: ALBUMIN 2.5 gm/dl (3.1-4.5); CREATININE 8.98 mg/dL (0.70-1.30); POTASSIUM 4.2 mmol/L (3.5-5.1); TOTAL PROTEIN 4.8 gm/dL (6.4-8.2)
[2021-02-23 10:21] VITALS: BP 90/48
[2021-02-23 11:01] VITALS: BP 111/66
[2021-02-23 16:18] VITALS: BP 107/76
[2021-02-23 16:21] LABS: BASO % 0.4 % (0.0-1.0); EOS # 0.1 10*3/uL (0.0-0.4); EOS % 1.6 % (1.0-4.0); HEMATOCRIT 30.2 % (42.0-52.0); LYMPH # 0.4 10*3/uL (1.3-4.4); MEAN CORPUSCULAR HGB 32.3 pg (27.0-31.0); MEAN CORPUSCULAR HGB CONC 34.1 g/dl (33.0-37.0); MEAN PLATELET VOLUME 10.1 fl (9.6-12.3); MONO # 0.5 10*3/uL (0.1-1.0); NEUT # 3.8 10*3/uL (2.3-7.9); PLATELET COUNT AUTOMATED 93 10*3/uL (130-400); RED BLOOD COUNT 3.19 10*6/uL (4.50-5.90); RED CELL DISTRI WIDTH 22.4 % (0-14.5); WHITE BLOOD COUNT 4.9 10*3/uL (4.8-10.8)
[2021-02-23 16:27] LABS: MEAN CELL VOLUME 94.7 fl (80.0-94.0)
[2021-02-23 20:00] VITALS: BP 124/54
[2021-02-24] VITALS: BP 123/57
[2021-02-24 06:57] LABS: ALBUMIN 2.2 gm/dl (3.1-4.5); CREATININE 5.45 mg/dL (0.70-1.30); POTASSIUM 4.2 mmol/L (3.5-5.1)
[2021-02-24 07:50] LABS: BASO % 0.7 % (0.0-1.0); EOS # 0.2 10*3/uL (0.0-0.4); HEMATOCRIT 25.9 % (42.0-52.0); LYMPH # 0.4 10*3/uL (1.3-4.4); LYMPH % 8.9 % (27.0-41.0); MEAN CELL VOLUME 97.7 fl (80.0-94.0); MEAN CORPUSCULAR HGB 33.2 pg (27.0-31.0); MEAN PLATELET VOLUME 9.4 fl (9.6-12.3); MONO # 0.5 10*3/uL (0.1-1.0); MONO % 10.8 % (3.0-9.0); NEUT # 3.2 10*3/uL (2.3-7.9); NEUT % 74.2 % (47.0-73.0); PLATELET COUNT AUTOMATED 84 10*3/uL (130-400); RED BLOOD COUNT 2.65 10*6/uL (4.50-5.90); WHITE BLOOD COUNT 4.3 10*3/uL (4.8-10.8)
[2021-02-24 08:00] VITALS: BP 133/64
[2021-02-24 12:00] VITALS: BP 131/56
[2021-02-24 16:00] VITALS: BP 139/64
[2021-02-24 20:00] VITALS: BP 114/85
[2021-02-25] VITALS: BP 124/57
[2021-02-25 06:18] LABS: BASO % 0.8 % (0.0-1.0); EOS # 0.2 10*3/uL (0.0-0.4); EOS % 4.4 % (1.0-4.0); HEMATOCRIT 25.1 % (42.0-52.0); LYMPH # 0.6 10*3/uL (1.3-4.4); LYMPH % 11.9 % (27.0-41.0); MEAN CELL VOLUME 99.2 fl (80.0-94.0); MEAN CORPUSCULAR HGB 33.2 pg (27.0-31.0); MEAN CORPUSCULAR HGB CONC 33.5 g/dl (33.0-37.0); MONO # 0.5 10*3/uL (0.1-1.0); MONO % 10.9 % (3.0-9.0); NEUT # 3.4 10*3/uL (2.3-7.9); NEUT % 70.3 % (47.0-73.0); PLATELET COUNT AUTOMATED 100 10*3/uL (130-400); RED BLOOD COUNT 2.53 10*6/uL (4.50-5.90); RED CELL DISTRI WIDTH 22.4 % (0-14.5); WHITE BLOOD COUNT 4.8 10*3/uL (4.8-10.8)
[2021-02-25 14:00] VITALS: BP 93/45
[2021-02-25 16:00] VITALS: BP 94/51
[2021-02-25 20:00] VITALS: BP 63/48
[2021-02-25 20:20] VITALS: BP 80/42
[2021-02-26] VITALS: BP 91/53
[2021-02-26 06:15] LABS: BASO % 0.6 % (0.0-1.0); EOS # 0.1 10*3/uL (0.0-0.4); EOS % 1.2 % (1.0-4.0); HEMATOCRIT 21.6 % (42.0-52.0); LYMPH # 0.5 10*3/uL (1.3-4.4); LYMPH % 8.1 % (27.0-41.0); MEAN CORPUSCULAR HGB 33.8 pg (27.0-31.0); MEAN CORPUSCULAR HGB CONC 32.4 g/dl (33.0-37.0); MEAN PLATELET VOLUME 10.7 fl (9.6-12.3); MONO # 0.6 10*3/uL (0.1-1.0); MONO % 8.9 % (3.0-9.0); NEUT # 5.1 10*3/uL (2.3-7.9); NEUT % 78.6 % (47.0-73.0); PLATELET COUNT AUTOMATED 114 10*3/uL (130-400); RED BLOOD COUNT 2.07 10*6/uL (4.50-5.90); RED CELL DISTRI WIDTH 22.9 % (0-14.5); WHITE BLOOD COUNT 6.5 10*3/uL (4.8-10.8)
[2021-02-26 06:18] LABS: MEAN CELL VOLUME 104.3 fl (80.0-94.0)
[2021-02-26 06:33] LABS: CREATININE 5.43 mg/dL (0.70-1.30); POTASSIUM 3.8 mmol/L (3.5-5.1)
[2021-02-26 08:00] VITALS: BP 112/61
[2021-02-26] MEDS ORDERED: Carafate1 GM PO (11:05)
[2021-02-26 12:00] VITALS: BP 104/53; BP 135/88
== END 2021-02-26 14:51 | disposition hospice, home (50) | DRG 377 ==
LOC: ED 14:03 → 4E 15:26 → EDHOLD 15:26 → 4E 18:40
PROVIDERS: Internal Medicine; Internal Medicine Nephrology; Student in an Organized Health Care Education/Training Program; ADMIT Internal Medicine; ATTEND Internal Medicine
PROC: 30233N0 Transfusion of Autologous Red Blood Cells into Peripheral Vein, Percutaneous Approach (ICD-10-PCS; principal; 2021-02-22)
PROC: 5A1D70Z Performance of Urinary Filtration, Intermittent, Less than 6 Hours Per Day (ICD-10-PCS; 2021-02-23)
PROC: 5A1D70Z Performance of Urinary Filtration, Intermittent, Less than 6 Hours Per Day (ICD-10-PCS; 2021-02-25)
DX: K92.2 Gastrointestinal hemorrhage, unspecified (principal); N18.6 End stage renal disease; R65.11 Systemic inflammatory response syndrome (SIRS) of non-infectious origin with acute organ dysfunction; E44.1 Mild protein-calorie malnutrition; I48.20 Chronic atrial fibrillation, unspecified; D68.9 Coagulation defect, unspecified; E87.2 Acidosis; J96.10 Chronic respiratory failure, unspecified whether with hypoxia or hypercapnia; I13.2 Hypertensive heart and chronic kidney disease with heart failure and with stage 5 chronic kidney disease, or end stage renal disease; C15.9 Malignant neoplasm of esophagus, unspecified; D53.9 Nutritional anemia, unspecified; I71.4 Abdominal aortic aneurysm, without rupture; Z51.5 Encounter for palliative care; G62.9 Polyneuropathy, unspecified; I50.9 Heart failure, unspecified; N40.0 Benign prostatic hyperplasia without lower urinary tract symptoms; K21.9 Gastro-esophageal reflux disease without esophagitis; D69.6 Thrombocytopenia, unspecified; R73.9 Hyperglycemia, unspecified; E78.5 Hyperlipidemia, unspecified; E83.41 Hypermagnesemia; J44.9 Chronic obstructive pulmonary disease, unspecified; Z99.2 Dependence on renal dialysis; Z99.81 Dependence on supplemental oxygen; Z90.49 Acquired absence of other specified parts of digestive tract; Z87.891 Personal history of nicotine dependence; Z79.899 Other long term (current) drug therapy; Z79.82 Long term (current) use of aspirin; Z68.28 Body mass index [BMI] 28.0-28.9, adult